=== PATIENT | female | born 1970 | race Caucasian/White ===

== ENCOUNTER 2025-06-04 17:42 | Inpatient (IN) ==
--- NOTE | 2025-06-04 18:13 | Emergency Department Note ---
Impression & Plan T12 burst fracture, Fall, Back pain, Acute hyperglycemia ED Provider Note NAME: MISHEL CARDOSO AGE: 55 SEX: F : 1970 ARRIVES VIA: Walk-In INFORMANT: Patient ED PROVIDER(S): Reyes Scott DO CHIEF COMPLAINT: back pain HPI: Patient is a 55-year-old female who presents to the ER for back pain. She notes that she got pushed over by a dog while at work on March 30. Since that she has been having worsening back pain. She has had imaging performed earlier and per family report states there is no fracture. Family notes that she had an MRI done the other day which was read by Dr. Juarez and she was referred to the ER for severe pain and worsening imaging. ADDITIONAL HISTORY OBTAINED: Additional history obtained from family who notes that she had the MRI performed at 611 Chronic Medical/Social Conditions Affecting Care: Per HPI PAST MEDICAL HISTORY:See Below PAST SURGICAL HISTORY:See Below FAMILY HISTORY:See Below SOCIAL HISTORY:See Below HOME MEDICATIONS:See Below ALLERGIES:See Below VITALS:See Below PHYSICAL EXAMINATION: GENERAL: Sitting up in chair, alert, disheveled, moderate distress holding her lower back EYE EXAM: normal conjunctiva. PERRL and EOM's grossly intact. OROPHARYNX: mucous membranes are moist LUNGS: Clear to auscultation. Normal chest wall mechanics HEART: no murmurs, S1 normal and S2 normal ABDOMEN: abdomen soft, non-tender, normo-active bowel sounds, no masses, no rebound or guarding. BACK: Back is symmetrical on inspection and there is no deformity, midline lower lumbar tenderness tracking up through upper lumbar, no CVA tenderness. SKIN: no rashes and no bruising UPPER EXTREMITIES: upper extremities are grossly normal. LOWER EXTREMITIES: Flexion-extension bilateral hips knees ankles is intact. Able to stand on her feet. Significant pain with movement. NEURO EXAM: Normal sensorium, cranial nerves II-XII grossly intact, normal speech, no gross weakness of arms, no gross weakness of legs. MEDICAL DECISION MAKING: Patient is a 55-year-old female who presents ER for the above-stated complaint. I discussed case with Dr. Huy Chacon who notes that patient has a T12 burst fracture which is felt to be pathologic. He requested MRI with and without contrast and commendation with admission and they will see in the morning and decide a plan for surgery. Patient was called upon arrival without the results of the blood work after discussion with orthospine. Labs showed mild leukocytosis 11,000. Hemoglobin is 17. CMP resulted and showed an elevated glucose of 300 with a gap. At this time the patient had already been admitted. Will defer to the hospitalist. Patient was given IV morphine and Toradol and fluids while in the ER. Consults/Care Managements Discussions: Per MDM Triage Nursing notes reviewed. Limited review of prior medical records performed Vital Signs: reviewed and remarkable for tachy Differential diagnosis: Musculoskeletal, disc herniation, fracture, metastatic disease, cord compression, discitis, sciatica, cauda equina, infection, aortic disease, renal colic, gastrointestinal, as well as other pathologies. ER treatment provided: See below Diagnostics interpreted by me include EKG and cardiac monitoring as listed below: -Cardiac Monitoring: An order was placed for continuous cardiac monitoring. The monitor shows a rate of 101 with sinus rhythm. -ECG: none -Laboratory studies:Interpreted by me as stated above in MDM and shown below. Imaging studies: Xrays: As interpreted by me:none CTs show: none Procedures:none Critical Care: None Past Med/Surg History Problem List (Updated 06/04/25 @ 23:46 by Reyes Scott DO) Acute hyperglycemia (Acute) Back pain (Acute) Fall (Acute) T12 burst fracture (Acute) Social History Smoking Status: Current every day smoker Tobacco Type: Cigarettes Hx Alcohol Use: No Hx Substance Use: No Preferred Language: Panamanian Feels Safe at Home: Yes Allergies Allergies Allergy/AdvReac Type Severity Reaction Status Date / Time No Known Allergies Allergy Verified 06/04/25 18:50 Home Meds Home Medications Medication Instructions Recorded Confirmed ibuprofen 200 mg tablet 600 - 800 mg PO Q6H PRN Pain 06/04/25 06/04/25 Results & Data (ED) Vital Signs Vital Signs - 24 hr 06/04/25 17:52 06/04/25 18:31 06/04/25 18:32 Temperature 36.6 C Temperature Source Temporal Artery Scan Pulse Rate 116 H 93 H Pulse Rate [Finger] Respiratory Rate 20 Respiratory Effort / Characteristics Non-Labored Spontaneous Respiratory Depth Normal Respiratory Pattern Regular Blood Pressure 113/74 Blood Pressure [Left Arm] Blood Pressure Mean 87 Blood Pressure Mean [Left Arm] Blood Pressure Position Sitting Pulse Oximetry 98 99 Oxygen Delivery Method Room Air Room Air Sepsis Recent Fever Within 48 Hours No Sepsis New/Unexplained Change in Mental Status N/A Sepsis Action Taken by Nursing No Action Required 06/04/25 18:47 Temperature Temperature Source Pulse Rate Pulse Rate [Finger] 87 Respiratory Rate 20 Respiratory Effort / Characteristics Respiratory Depth Respiratory Pattern Blood Pressure Blood Pressure [Left Arm] 114/62 Blood Pressure Mean Blood Pressure Mean [Left Arm] 79 Blood Pressure Position Pulse Oximetry 99 Oxygen Delivery Method Room Air Sepsis Recent Fever Within 48 Hours Sepsis New/Unexplained Change in Mental Status Sepsis Action Taken by Nursing Laboratory Data 06/04/25 18:32 06/04/25 18:32 Lab Results 06/04/25 Range/Units 18:32 WBC 11.89 H (4.8-10.8) K/ul RBC 5.57 H (4.20-5.40) M/uL Hgb 17.1 H (12.0-16.0) g/dl Hct 48.8 H (37.0-47.0) % MCV 87.6 (80.0-100.0) fL MCH 30.7 (25.0-34.0) pg MCHC 35.0 (32.0-36.0) g/dL RDW Std Deviation 38.6 (36.4-46.3) fL RDW Coeff of Tad 12.0 (11.5-14.5) % Plt Count 375 (130-400) K/uL MPV 10.1 (9.4-12.4) fL Immature Gran % (Auto) 2.9 % Neut % (Auto) 68.6 % Lymph % (Auto) 20.2 % [place] % (Auto) 5.3 % Eos % (Auto) 1.9 % Baso % (Auto) 1.1 % Neut # (Auto) 8.15 H (1.40-6.50) K/uL Lymph # (Auto) 2.40 (1.20-3.40) K/uL [place] # (Auto) 0.63 H (0.11-0.59) K/uL Eos # (Auto) 0.23 (0.00-0.50) K/uL Baso # (Auto) 0.13 (0.00-0.20) K/uL Immature Gran # (Auto) 0.35 H (0.01-0.20) K/uL Sodium 130 L (136-145) mmol/L Potassium 4.3 (3.5-5.1) mmol/L Chloride 96 L (98-107) mmol/L Carbon Dioxide 16 L (21-32) mmol/L Anion Gap 18 H (3-11) BUN 15 (6-23) mg/dl Creatinine 0.70 (0.6-1.2) mg/dl Est Cr Clr Drug Dosing 77.0 ml/min eGFR 102.07 BUN/Creatinine Ratio 21.4 H (10-20) Glucose 466 H* (70-99(Fasting)) mg/dl Calcium 9.0 (8.6-10.3) mg/dl Total Bilirubin 0.4 (0.2-1.0) mg/dl AST 9 L (13-39) U/L ALT 6 L (7-52) U/L Alkaline Phosphatase 113 H (34-104) U/L Total Protein 6.9 (6.0-8.3) gm/dl Albumin 3.1 L (3.4-5.0) gm/dl Globulin 3.8 (2.5-4.0) gm/dl Albumin/Globulin Ratio 0.8 L (0.9-2) Lipase 10 L (11-82) U/L Administered Medications Insulin Human Regular 250 (units/ Sodium Chloride) 250 mls @ 5.3 mls/hr IV .Q24H SHEILA; Protocol Stop: 07/04/25 20:59 Last Titration: 06/04/25 23:04 Dose: 5.3 units/hr, 5.3 mls/hr Documented By: LIBERTAD Co-signed By: CARIE Admin: 06/04/25 22:06 Dose: 5.3 units/hr, 5.3 mls/hr Documented By: LIBERTAD Co-signed By: SHANON Potassium Chloride/Sodium Chloride (1/2 Nss + 20meq Kcl 1000ml) 20 meq in 1,000 mls @ 125 mls/hr IV .Q8H SHEILA Stop: 06/07/25 21:14 Last Admin: 06/04/25 22:07 Dose: 125 mls/hr Documented By: LIBERTAD Daptomycin 400 mg/ Syringe 8 mls @ 4 mls/min IV Q24H SHEILA; Protocol Stop: 06/11/25 21:59 Last Admin: 06/04/25 22:50 Dose: 4 mls/min Documented By: LIBERTAD Insulin Aspart (Insulin Aspart Per Unit Charge) 0 units SC ACHS SHEILA Stop: 07/04/25 20:59 Last Admin: 06/04/25 23:09 Dose: Not Given Documented By: LIBERTAD Co-signed By: CARIE Discontinued Medications Sodium Chloride (Nss) 1,000 mls @ 999 mls/hr IV .Q1H1M ONE Stop: 06/04/25 19:13 Last Infusion: 06/04/25 20:03 Dose: Infused Documented By: Admin: 06/04/25 18:28 Dose: 999 mls/hr Documented By: JO Sodium Chloride (Nss) 1,000 mls @ 999 mls/hr IV .Q1H1M ONE Stop: 06/04/25 22:19 Last Admin: 06/04/25 21:57 Dose: 999 mls/hr Documented By: LIBERTAD Piperacillin Sod/Tazobactam Sod (Zosyn) 4.5 gm in 100 mls @ 200 mls/hr IV ONE ONE; Protocol Stop: 06/04/25 22:14 Last Admin: 06/04/25 22:53 Dose: 200 mls/hr Documented By: LIBERTAD Ketorolac Tromethamine (Ketorolac Tromethamine 15 Mg/Ml Vial) 15 mg IV NOW ONE Stop: 06/04/25 18:14 Last Admin: 06/04/25 18:28 Dose: 15 mg Documented By: JO Miscellaneous (Dka Goal Range 150-250 Mg/Dl) 1 each N/A ONE ONE Stop: 06/04/25 20:50 Last Admin: 06/04/25 23:05 Dose: 1 each Documented By: LIBERTAD Morphine Sulfate (Morphine Sulfate 4 Mg/Ml 1 Ml Carp\Vial) 4 mg IV NOW STA Stop: 06/04/25 18:36 Last Admin: 06/04/25 18:43 Dose: 4 mg Documented By: WARREN Ondansetron HCl (Ondansetron Inj 2 Mg/Ml 2 Ml Vial) 4 mg IV NOW STA Stop: 06/04/25 18:36 Last Admin: 06/04/25 18:43 Dose: 4 mg Documented By: WARREN Discharge Plan Visit Data Chief Complaint: Back Injury/Pain Stated Complaint: BACK BROKEN, VOMITING ED Provider: Reyes Scott Discharge Problem: T12 burst fracture, Fall, Back pain, Acute hyperglycemia Patient Disposition: Admitted As Inpatient Condition: Fair Discharge Instructions Interventions: ED Discharge Assessment Last Done: 06/04/25 20:38 Discharge Problem: Fall Qualifiers: Encounter type: initial encounter Qualified Code(s): W19.XXXA - Unspecified fall, initial encounter Back pain Qualifiers: Back pain location: low back pain Chronicity: unspecified Back pain laterality: unspecified Sciatica presence: unspecified whether sciatica present Qualified Code(s): M54.50 - Low back pain, unspecified
[2025-06-04] MEDS: KETOROLAC TROMETHAMINE 15 MG/ML VIAL IV ONE (18:28)
[2025-06-04] MEDS: SODIUM CHLORIDE 0.9% 1,000 ML IV ONE ×2 (18:28→21:57)
[2025-06-04] MEDS: MoRPHine SULFATE 4 MG/ML 1 ML CARP\\VIAL IV STA (18:43)
[2025-06-04] MEDS: ONDANSETRON INJ 2 MG/ML 2 ML VIAL IV STA (18:43)
[2025-06-04 18:54] LABS: Hematocrit (blood only) 48.8 % (37.0-47.0); Hemoglobin 17.1 g/dl (12.0-16.0); Immature Granulocytes # (auto) 0.35 K/uL (0.01-0.20); Immature Granulocytes % (auto) 2.9 %; Mean Corpuscular Hemoglobin 30.7 pg (25.0-34.0); Mean Corpuscular Volume 87.6 fL (80.0-100.0); Platelet Count 375 K/uL (130-400); RDW Standard Deviation 38.6 fL (36.4-46.3); Red Blood Count 5.57 M/uL (4.20-5.40); White Blood Count 11.89 K/ul (4.8-10.8)
[2025-06-04] MEDS ORDERED: MoRPHine SULFATE 2 MG/ML CARP IV PRN (18:54)
--- NOTE | 2025-06-04 19:31 | History & Physical Report ---
Date of Service June 04, 2025 Assessment & Plan (1) T12 burst fracture: (2) Fall: Plan Assessment and plan: S/p fall T12 burst fracture: Noted on MRI, repeat MRI with contrast, add lumbar spine MRI with concerns for incontinence Pain control with morphine, bedrest, Ortho consulted, n.p.o. after midnight for possible surgical intervention -Insert Espinoza catheter; for further help with pain management Recent dog attack -March 2025 Up-to-date on rabies shots A total of 60 minutes was spent on chart review/reviewing diagnostic data/discussion with consultants/facilitating plan of care Full code DVT prophylaxis: SCDs History of Present Illness Chief Complaint: Back pain Primary Care Provider: NO PCP The patient is a 55-year-old female with no significant past medical history who presents to the ED on 06/04/2025 with complaints of ongoing back pain since March 2025. The patient reports being attacked by a pit bull on March 30, 2025 while she was working. The PIP or jumped on her and knocked her down. He also pinned her up against a wall. She reports her back pain has continued to worsen. She was following with orthopedics outpatient and had an MRI without contrast of her thoracic spine that resulted today 06/04/2025 showing a T12 burst fracture with concern for a pathological fracture. She was sent in by Dr. Juarez for further imaging. On exam, patient has no neurological deficits. She reports pain with movement. She also reports issues with ongoing incontinence due to the fact that she cannot get to the bathroom quick enough secondary to the pain. She denies saddle anesthesia. She denies any chest pain/shortness of breath. She reports taking ibuprofen at home for the pain with no improvement. Was given morphine in the ED with improvement. She does report thoracic/lumbar spinal tenderness when examined. Currently smokes a half a pack of cigarettes a day Denies any alcohol use On arrival to the ED, labs are fairly unremarkable, CMP still pending at this time. The patient will be admitted for further management of T12 compression fracture Allergies Allergy/AdvReac Type Severity Reaction Status Date / Time No Known Allergies Allergy Verified 06/04/25 18:50 Home Medications Medication Instructions Recorded Confirmed Type ibuprofen 200 mg tablet 600 - 800 mg PO Q6H PRN Pain 06/04/25 06/04/25 History Past Med/Surg History Problem List (Updated 06/04/25 @ 19:27 by DALE Duggan) Fall T12 burst fracture Social History Smoking Status: Current every day smoker Tobacco Type: Cigarettes Preferred Language: Namibian Feels Safe at Home: Yes Review of Systems Review of Systems: All systems reviewed & are unremarkable except as noted in HPI & below Physical Exam Constitutional: WD/WN, vitals as above Eyes: PERRL, conjunctivae normal, anicteric sclerae ENMT: external ear and nose normal, oropharynx normal Neck: trachea midline, no thyromegaly Respiratory: normal respiratory effort, lungs clear to auscultation Cardiovascular: RRR, no murmur, no edema Gastrointestinal (Abdomen): normal bowel sounds, soft, nontender, no hepatosplenomegaly Musculoskeletal: no cyanosis or clubbing, extremities motor strength 5/5 (Left foot s/p toe amputation, no neurodeficits, 5/5 strength bilateral legs) Skin: no rashes, warm and dry Neurologic: PERRL, EOMI, accommodation nl, no face palsy, no dysarthria Lymphatic: no cervical or axillary lymphadenopathy Results & Data Results & Data Vital Signs (Past 12 Hours) Vital Signs Temp Pulse Pulse Resp BP BP Pulse Ox 06/04/25 18:47 87 20 114/62 99 06/04/25 18:32 93 H 06/04/25 18:31 99 06/04/25 17:52 36.6 C 116 H 20 113/74 98 O2 Del Method 06/04/25 18:47 Room Air 06/04/25 18:32 06/04/25 18:31 Room Air 06/04/25 17:52 Room Air Diagnostic Findings Laboratory Results WBC 11.89 K/ul (4.8-10.8) H 06/04/25 18:32 RBC 5.57 M/uL (4.20-5.40) H 06/04/25 18:32 Hgb 17.1 g/dl (12.0-16.0) H 06/04/25 18:32 Hct 48.8 % (37.0-47.0) H 06/04/25 18:32 MCV 87.6 fL (80.0-100.0) 06/04/25 18:32 MCH 30.7 pg (25.0-34.0) 06/04/25 18:32 MCHC 35.0 g/dL (32.0-36.0) 06/04/25 18:32 RDW Std Deviation 38.6 fL (36.4-46.3) 06/04/25 18:32 RDW Coeff of Tad 12.0 % (11.5-14.5) 06/04/25 18:32 Plt Count 375 K/uL (130-400) 06/04/25 18:32 MPV 10.1 fL (9.4-12.4) 06/04/25 18:32 Immature Gran % (Auto) 2.9 % 06/04/25 18:32 Neut % (Auto) 68.6 % 06/04/25 18:32 Lymph % (Auto) 20.2 % 06/04/25 18:32 [place] % (Auto) 5.3 % 06/04/25 18:32 Eos % (Auto) 1.9 % 06/04/25 18:32 Baso % (Auto) 1.1 % 06/04/25 18:32 Neut # (Auto) 8.15 K/uL (1.40-6.50) H 06/04/25 18:32 Lymph # (Auto) 2.40 K/uL (1.20-3.40) 06/04/25 18:32 [place] # (Auto) 0.63 K/uL (0.11-0.59) H 06/04/25 18:32 Eos # (Auto) 0.23 K/uL (0.00-0.50) 06/04/25 18:32 Baso # (Auto) 0.13 K/uL (0.00-0.20) 06/04/25 18:32 Immature Gran # (Auto) 0.35 K/uL (0.01-0.20) H 06/04/25 18:32 Supervising Physician Co-Signing Physician Notes Attending Addendum: Case reviewed with the advanced practitioner. I have personally performed a history and physical examination on the patient. I have reviewed the advanced practitioner's documentation on the date of service referenced in note, and I agree with, and take responsibility for the plan of care. please refer to her notes for full details patient seen and examined, records reviewed by myself as well on exam, patient seen resting in bed, friend at bedside reports mid-low back pain, 6/10 denies leg weakness, numbness, incontinence reports she has a boil on her lower abdomen no other symptoms VS noted and reviewed oriented X3, not in distress, speaks in sentences with no effort nor accessory muscle use normal rate, regular rhythm, no murmurs clear breath sounds bilaterally non distended, soft, nontender suprapubic area- (examined with SHAREPOINT TRAINER at bedside throughout whole encounter) (+) erythematous fluctuant mass with yellow drainage, eschar no bipedal edema, erythema, warmth no neuro deficits all labs, imaging noted and reviewed ASSESSMENT AND PLAN> T11-T12 BURST, COMPRESSION FRACTURE discussed with Dr. 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 Kalin Page MD
[2025-06-04 20:14] LABS: Alanine Aminotransferase 6.0 U/L (7-52); Albumin Globulin Ratio 0.8 (0.9-2); Alkaline Phosphatase 113.0 U/L (34-104); Anion Gap 18.0 (3-11); Bilirubin,Total 0.4 mg/dl (0.2-1.0); Blood Urea Nitrogen 15.0 mg/dl (6-23); Calcium 9.0 mg/dl (8.6-10.3); Carbon Dioxide 16.0 mmol/L (21-32); Chloride 96.0 mmol/L (98-107); Creatinine Clr Calc Pharmacy 77.0 ml/min; Globulin 3.8 gm/dl (2.5-4.0); Glucose 466.0 mg/dl (70-99(Fasting)); Lipase 10.0 U/L (11-82); Potassium 4.3 mmol/L (3.5-5.1); Sodium 130.0 mmol/L (136-145); Total Protein 6.9 gm/dl (6.0-8.3)
[2025-06-04] MEDS ORDERED: PHARMACY GLYCEMIC MGMT CONSULT PRN (20:49)
[2025-06-04] MEDS ORDERED: STAT IV Infusion **Titration per Protocol STA (20:49)
[2025-06-04] MEDS ORDERED: PLASMA-LYTE A 1,000 ML IV SCH (21:00)
[2025-06-04] MEDS ORDERED: PENDING 1/2NSS+20mEq KCL IVF SCH (21:00)
[2025-06-04] MEDS ORDERED: DEXTROSE 50% 50 ML SYRINGE IV PRN (21:15)
[2025-06-04] MEDS ORDERED: GLUCOSE 40% GEL 15 GM TUBE PO PRN (21:15)
[2025-06-04] MEDS ORDERED: CARBOHYDRATES FOR HYPOGLYCEMIA PO PRN (21:15)
[2025-06-04] MEDS ORDERED: GLUCAGON FOR INJ 1 MG VIAL SQ PRN (21:15)
[2025-06-04] MEDS ORDERED: NovoLIN-R BOLUS FROM BAG IV ONE (21:15)
[2025-06-04] MEDS ORDERED: GLUCOSE 10 TAB/TUBE PO PRN (21:15)
[2025-06-04] MEDS: INSULIN REGULAR 250 UNITS in SODIUM CHLORIDE 0.9% 247.5 ML IV SCH (22:06)
[2025-06-04] MEDS: SODIUM CHLOR 0.45% + 20MEQ KCL 20 MEQ/1,000 ML BAG IV SCH (22:07)
[2025-06-04 22:29] LABS: Base Excess VBG -9.3 mEq/L; HCO3 VBG 18 mmol/L; Oxygen Saturation VBG < 60.0 %; PCO2 VBG 41 mmHg (38-50); PO2 VBG 27 mmHg; pH VBG 7.24 (7.36-7.41)
[2025-06-04] MEDS: DAPTOmycin 400 MG in SYRINGE 0 ML IV SCH (22:50)
[2025-06-04] MEDS: PIPERACILLIN/TAZOBACTAM 4.5 GM/100 ML BAG IV ONE (22:53)
[2025-06-04] MEDS: DKA GOAL RANGE 150-250 mg/dl ONE (23:05)
[2025-06-04] MEDS: INSULIN ASPART PER UNIT CHARGE SC SCH (23:09)
[2025-06-04 23:14] LABS: Magnesium 1.6 mg/dl (1.7-2.4)
[2025-06-04] MEDS: LORazepam 0.5 MG TAB PO STA (23:46)
[2025-06-04 23:48] LABS: Anion Gap 20.0 (3-11); Calcium 8.4 mg/dl (8.6-10.3); Carbon Dioxide 13.0 mmol/L (21-32); Chloride 98.0 mmol/L (98-107); Potassium 3.8 mmol/L (3.5-5.1); Sodium 131.0 mmol/L (136-145)
[2025-06-05 00:10] LABS: Blood Urea Nitrogen 15.0 mg/dl (6-23); Creatinine Clr Calc Pharmacy 94.7 ml/min; Glucose 396.0 mg/dl (70-99(Fasting))
[2025-06-05 01:50] LABS: Anion Gap 11.0 (3-11); Blood Urea Nitrogen 18.0 mg/dl (6-23); Calcium 7.7 mg/dl (8.6-10.3); Carbon Dioxide 21.0 mmol/L (21-32); Chloride 102.0 mmol/L (98-107); Creatinine Clr Calc Pharmacy 74.5 ml/min; Glucose 321.0 mg/dl (70-99(Fasting)); Magnesium 1.4 mg/dl (1.7-2.4); Potassium 3.1 mmol/L (3.5-5.1); Sodium 134.0 mmol/L (136-145)
[2025-06-05] MEDS: PENDING D5 1/2NS+20mEq KCL IVF SCH (02:15)
[2025-06-05] MEDS: D5W AND 1/2NSS + 20MEQ KCL 20 MEQ/1,000 ML BAG IV SCH (03:01)
[2025-06-05] MEDS: PIPERACILLIN/TAZOBACTAM 4.5 GM/100 ML BAG IV SCH (03:02)
[2025-06-05] MEDS: POTASSIUM CHLORIDE CRTAB 20 MEQ TABCR PO STA ×2 (05:54→07:59)
[2025-06-05] MEDS: MAGNESIUM SULFATE / D5W 1 GM/100 ML BAG IV SCH (05:54)
[2025-06-05 05:57] LABS: Hematocrit (blood only) 44.5 % (37.0-47.0); Hemoglobin 15.6 g/dl (12.0-16.0); Immature Granulocytes # (auto) 0.27 K/uL (0.01-0.20); Immature Granulocytes % (auto) 1.7 %; Mean Corpuscular Hemoglobin 30.5 pg (25.0-34.0); Mean Corpuscular Volume 86.9 fL (80.0-100.0); Platelet Count 345 K/uL (130-400); RDW Standard Deviation 37.7 fL (36.4-46.3); Red Blood Count 5.12 M/uL (4.20-5.40); White Blood Count 15.70 K/ul (4.8-10.8)
[2025-06-05 06:18] LABS: Alanine Aminotransferase 5.0 U/L (7-52); Albumin Globulin Ratio 0.9 (0.9-2); Alkaline Phosphatase 81.0 U/L (34-104); Anion Gap 8.0 (3-11); Bilirubin,Total 0.2 mg/dl (0.2-1.0); Blood Urea Nitrogen 19.0 mg/dl (6-23); Calcium 7.5 mg/dl (8.6-10.3); Carbon Dioxide 20.0 mmol/L (21-32); Chloride 105.0 mmol/L (98-107); Creatinine Clr Calc Pharmacy 86.0 ml/min; Globulin 2.7 gm/dl (2.5-4.0); Glucose 268.0 mg/dl (70-99(Fasting)); Magnesium 1.3 mg/dl (1.7-2.4); Potassium 3.0 mmol/L (3.5-5.1); Sodium 133.0 mmol/L (136-145); Total Protein 5.1 gm/dl (6.0-8.3)
[2025-06-05] MEDS: SODIUM CHLORIDE 0.9% 1,000 ML IV SCH (08:08)
[2025-06-05] MEDS: LANTUS PER UNIT CHARGE SC STA ×2 (08:23→09:37)
[2025-06-05] MEDS: INSULIN ASPART PER UNIT CHARGE SC SCH (08:23)
--- NOTE | 2025-06-05 09:48 | Surgery Consultation ---
Date of Consultation June 05, 2025 Assessment & Plan (1) Suprapubic abscess: 55 yo female with uncontrolled diabetes no on any current treatment who presented to ED due to Chronic back pain s/p pitbull attack and fall who was found to be in DKA with blood glucose oin 400's and hemoglobin a1c of >16.9. History of skin infections. Suprapubic phelgmon, cellulitis, with skin necrosis. Will need debridement due to skin necrosis and subcutaneous infection. Discussed with patient that she would be at risk for needing wound vac due to her poorly controlled diabetes . CT scan to evaluation for any deeper subcutaneous tracking. NPO for now. Continue medical management CT scan reviewed with Dr. mills, plan for OR tomorrow 9 am for debridement of wound. Okay for diet today and NPO after midnight. Dr. Mills has seen and examined patient. History of Present Illness Reason for Consultation: Suprapubic abscess, skin necrosis Requesting Physician: MD Camilo Attending Physician: Shine Lion DO History of Present Illness Cat is a 55 yo female who has had chronic back pain and issues with mobility since dog attack early March. She presented to ED with chronic back pain. She was found to have elevated blood glucose in 400s with DKA and started on Heparin. Found to have suprapubic abscess and skin necrosis in which our services were consulted. History of prior skin infections. Diabetic but has not been on Insulin for at least 3 years due to no insurance and unable to cover costs. States area of suprapubic region became inflamed about 3 days ago, Skin was black which she states she just pulled off. No vaginal pain. Blood glucose in 200's today, hemoglobin a 1 c >16.9 Allergies Allergy/AdvReac Type Severity Reaction Status Date / Time latex Allergy Itching Verified 06/05/25 10:37 Home Medications Medication Instructions Recorded Confirmed Type ibuprofen 200 mg tablet 600 - 800 mg PO Q6H PRN Pain 06/04/25 06/04/25 History Patient History Social History Smoking Status: Current every day smoker Tobacco Type: Cigarettes Hx Alcohol Use: No Hx Substance Use: No Preferred Language: Armenian Feels Safe at Home: Yes Review of Systems Review of Systems: All systems reviewed & are unremarkable except as noted in HPI & below Physical Exam Constitutional: WD/WN, vitals as above cooperative; no acute distress and not ill appearing Respiratory: normal respiratory effort; no respiratory distress Gastrointestinal (Abdomen): Inspection/Auscultation: abdomen not distended Supraprubic region: there is about 7 cm area of fluctuance and induration with central necrotic skin, tender to palpation, no subcutaneous crepitus noted Skin: no rashes, warm and dry Results & Data Vital Signs (Past 12 Hours) Vital Signs Temp Pulse Pulse Resp BP BP Pulse Ox 06/05/25 07:44 36.7 C 88 20 115/70 95 06/05/25 05:36 92 H 06/05/25 02:31 36.8 C 99 H 14 113/74 100 06/04/25 23:30 109 H 06/04/25 23:25 36.7 C 104 H 20 94/61 L 99 06/04/25 22:17 104 H 20 102/59 L O2 Del Method 06/05/25 07:44 Room Air 06/05/25 05:36 06/05/25 02:31 Room Air 06/04/25 23:30 06/04/25 23:25 Room Air 06/04/25 22:17 Laboratory Results 06/05/25 06/05/25 06/05/25 Range/Units 07:19 05:53 05:39 WBC 15.70 H (4.8-10.8) K/ul RBC 5.12 (4.20-5.40) M/uL Hgb 15.6 (12.0-16.0) g/dl Hct 44.5 (37.0-47.0) % MCV 86.9 (80.0-100.0) fL MCH 30.5 (25.0-34.0) pg MCHC 35.1 (32.0-36.0) g/dL RDW Std Deviation 37.7 (36.4-46.3) fL RDW Coeff of Tad 11.9 (11.5-14.5) % Plt Count 345 (130-400) K/uL MPV 9.7 (9.4-12.4) fL Immature Gran % (Auto) 1.7 % Neut % (Auto) 76.7 % Lymph % (Auto) 13.8 % Travis % (Auto) 6.1 % Eos % (Auto) 1.0 % Baso % (Auto) 0.7 % Neut # (Auto) 12.04 H (1.40-6.50) K/uL Lymph # (Auto) 2.17 (1.20-3.40) K/uL Travis # (Auto) 0.95 H (0.11-0.59) K/uL Eos # (Auto) 0.16 (0.00-0.50) K/uL Baso # (Auto) 0.11 (0.00-0.20) K/uL Immature Gran # (Auto) 0.27 H (0.01-0.20) K/uL VBG pH 7.30 L (7.36-7.41) VBG pCO2 (38-50) mmHg VBG pO2 mmHg VBG HCO3 mmol/L VBG O2 Saturation % VBG Base Excess mEq/L Sodium 133 L (136-145) mmol/L Potassium 3.0 L (3.5-5.1) mmol/L Chloride 105 (98-107) mmol/L Carbon Dioxide 20 L (21-32) mmol/L Anion Gap 8 (3-11) BUN 19 (6-23) mg/dl Creatinine 0.65 (0.6-1.2) mg/dl Est Cr Clr Drug Dosing 86.0 ml/min eGFR 103.91 BUN/Creatinine Ratio 29.2 H (10-20) Glucose 268 H (70-99(Fasting)) mg/dl POC Glucose 235 H 209 H (70-99) mg/dl Estimat Average Glucose > 438 mg/dl Hemoglobin A1c > 16.9 H (4.5-5.6) % Lactate (0.4-2.0) mmol/L Calcium 7.5 L (8.6-10.3) mg/dl Phosphorus 2.6 Magnesium 1.3 L Total Bilirubin 0.2 (0.2-1.0) mg/dl AST 5 L (13-39) U/L ALT 5 L (7-52) U/L Alkaline Phosphatase 81 (34-104) U/L Total Protein 5.1 L D (6.0-8.3) gm/dl Albumin 2.4 L (3.4-5.0) gm/dl Globulin 2.7 (2.5-4.0) gm/dl Albumin/Globulin Ratio 0.9 (0.9-2) Lipase (11-82) U/L 07/09/25 07/09/25 07/09/25 Range/Units 05:03 04:04 03:09 WBC (4.8-10.8) K/ul RBC (4.20-5.40) M/uL Hgb (12.0-16.0) g/dl Hct (37.0-47.0) % MCV (80.0-100.0) fL MCH (25.0-34.0) pg MCHC (32.0-36.0) g/dL RDW Std Deviation (36.4-46.3) fL RDW Coeff of Tad (11.5-14.5) % Plt Count (130-400) K/uL MPV (9.4-12.4) fL Immature Gran % (Auto) % Neut % (Auto) % Lymph % (Auto) % Travis % (Auto) % Eos % (Auto) % Baso % (Auto) % Neut # (Auto) (1.40-6.50) K/uL Lymph # (Auto) (1.20-3.40) K/uL Travis # (Auto) (0.11-0.59) K/uL Eos # (Auto) (0.00-0.50) K/uL Baso # (Auto) (0.00-0.20) K/uL Immature Gran # (Auto) (0.01-0.20) K/uL VBG pH (7.36-7.41) VBG pCO2 (38-50) mmHg VBG pO2 mmHg VBG HCO3 mmol/L VBG O2 Saturation % VBG Base Excess mEq/L Sodium (136-145) mmol/L Potassium (3.5-5.1) mmol/L Chloride (98-107) mmol/L Carbon Dioxide (21-32) mmol/L Anion Gap (3-11) BUN (6-23) mg/dl Creatinine (0.6-1.2) mg/dl Est Cr Clr Drug Dosing ml/min eGFR BUN/Creatinine Ratio (10-20) Glucose (70-99(Fasting)) mg/dl POC Glucose 232 H 193 H 183 H (70-99) mg/dl Estimat Average Glucose mg/dl Hemoglobin A1c (4.5-5.6) % Lactate (0.4-2.0) mmol/L Calcium (8.6-10.3) mg/dl Phosphorus Magnesium Total Bilirubin (0.2-1.0) mg/dl AST (13-39) U/L ALT (7-52) U/L Alkaline Phosphatase (34-104) U/L Total Protein (6.0-8.3) gm/dl Albumin (3.4-5.0) gm/dl Globulin (2.5-4.0) gm/dl Albumin/Globulin Ratio (0.9-2) Lipase (11-82) U/L 06/05/25 06/05/25 06/05/25 Range/Units 02:05 01:12 00:57 WBC (4.8-10.8) K/ul RBC (4.20-5.40) M/uL Hgb (12.0-16.0) g/dl Hct (37.0-47.0) % MCV (80.0-100.0) fL MCH (25.0-34.0) pg MCHC (32.0-36.0) g/dL RDW Std Deviation (36.4-46.3) fL RDW Coeff of Tad (11.5-14.5) % Plt Count (130-400) K/uL MPV (9.4-12.4) fL Immature Gran % (Auto) % Neut % (Auto) % Lymph % (Auto) % Travis % (Auto) % Eos % (Auto) % Baso % (Auto) % Neut # (Auto) (1.40-6.50) K/uL Lymph # (Auto) (1.20-3.40) K/uL Travis # (Auto) (0.11-0.59) K/uL Eos # (Auto) (0.00-0.50) K/uL Baso # (Auto) (0.00-0.20) K/uL Immature Gran # (Auto) (0.01-0.20) K/uL VBG pH 7.27 L (7.36-7.41) VBG pCO2 (38-50) mmHg VBG pO2 mmHg VBG HCO3 mmol/L VBG O2 Saturation % VBG Base Excess mEq/L Sodium 134 L (136-145) mmol/L Potassium 3.1 L (3.5-5.1) mmol/L Chloride 102 (98-107) mmol/L Carbon Dioxide 21 (21-32) mmol/L Anion Gap 11 (3-11) BUN 18 (6-23) mg/dl Creatinine 0.75 (0.6-1.2) mg/dl Est Cr Clr Drug Dosing 74.5 ml/min eGFR 93.96 BUN/Creatinine Ratio 24.0 H (10-20) Glucose 321 H* (70-99(Fasting)) mg/dl POC Glucose 243 H 296 H (70-99) mg/dl Estimat Average Glucose mg/dl Hemoglobin A1c (4.5-5.6) % Lactate (0.4-2.0) mmol/L Calcium 7.7 L (8.6-10.3) mg/dl Phosphorus 3.0 Magnesium 1.4 L Total Bilirubin (0.2-1.0) mg/dl AST (13-39) U/L ALT (7-52) U/L Alkaline Phosphatase (34-104) U/L Total Protein (6.0-8.3) gm/dl Albumin (3.4-5.0) gm/dl Globulin (2.5-4.0) gm/dl Albumin/Globulin Ratio (0.9-2) Lipase (11-82) U/L 06/04/25 06/04/25 06/04/25 Range/Units 23:59 23:01 22:00 WBC (4.8-10.8) K/ul RBC (4.20-5.40) M/uL Hgb (12.0-16.0) g/dl Hct (37.0-47.0) % MCV (80.0-100.0) fL MCH (25.0-34.0) pg MCHC (32.0-36.0) g/dL RDW Std Deviation (36.4-46.3) fL RDW Coeff of Tad (11.5-14.5) % Plt Count (130-400) K/uL MPV (9.4-12.4) fL Immature Gran % (Auto) % Neut % (Auto) % Lymph % (Auto) % Travis % (Auto) % Eos % (Auto) % Baso % (Auto) % Neut # (Auto) (1.40-6.50) K/uL Lymph # (Auto) (1.20-3.40) K/uL Travis # (Auto) (0.11-0.59) K/uL Eos # (Auto) (0.00-0.50) K/uL Baso # (Auto) (0.00-0.20) K/uL Immature Gran # (Auto) (0.01-0.20) K/uL VBG pH Cancelled (7.36-7.41) VBG pCO2 (38-50) mmHg VBG pO2 mmHg VBG HCO3 mmol/L VBG O2 Saturation % VBG Base Excess mEq/L Sodium 131 L (136-145) mmol/L Potassium 3.8 (3.5-5.1) mmol/L Chloride 98 (98-107) mmol/L Carbon Dioxide 13 L (21-32) mmol/L Anion Gap 20 H (3-11) BUN 15 (6-23) mg/dl Creatinine 0.59 L (0.6-1.2) mg/dl Est Cr Clr Drug Dosing 94.7 ml/min eGFR 106.37 BUN/Creatinine Ratio 25.4 H (10-20) Glucose 396 H* (70-99(Fasting)) mg/dl POC Glucose 344 H* 332 H* 366 H* (70-99) mg/dl Estimat Average Glucose mg/dl Hemoglobin A1c (4.5-5.6) % Lactate 2.0 (0.4-2.0) mmol/L Calcium 8.4 L (8.6-10.3) mg/dl Phosphorus 3.5 Magnesium 1.6 L Total Bilirubin (0.2-1.0) mg/dl AST (13-39) U/L ALT (7-52) U/L Alkaline Phosphatase (34-104) U/L Total Protein (6.0-8.3) gm/dl Albumin (3.4-5.0) gm/dl Globulin (2.5-4.0) gm/dl Albumin/Globulin Ratio (0.9-2) Lipase (11-82) U/L 06/04/25 06/04/25 Range/Units 21:28 18:32 WBC 11.89 H (4.8-10.8) K/ul RBC 5.57 H (4.20-5.40) M/uL Hgb 17.1 H (12.0-16.0) g/dl Hct 48.8 H (37.0-47.0) % MCV 87.6 (80.0-100.0) fL MCH 30.7 (25.0-34.0) pg MCHC 35.0 (32.0-36.0) g/dL RDW Std Deviation 38.6 (36.4-46.3) fL RDW Coeff of Tad 12.0 (11.5-14.5) % Plt Count 375 (130-400) K/uL MPV 10.1 (9.4-12.4) fL Immature Gran % (Auto) 2.9 % Neut % (Auto) 68.6 % Lymph % (Auto) 20.2 % Travis % (Auto) 5.3 % Eos % (Auto) 1.9 % Baso % (Auto) 1.1 % Neut # (Auto) 8.15 H (1.40-6.50) K/uL Lymph # (Auto) 2.40 (1.20-3.40) K/uL Travis # (Auto) 0.63 H (0.11-0.59) K/uL Eos # (Auto) 0.23 (0.00-0.50) K/uL Baso # (Auto) 0.13 (0.00-0.20) K/uL Immature Gran # (Auto) 0.35 H (0.01-0.20) K/uL VBG pH 7.24 L (7.36-7.41) VBG pCO2 41 (38-50) mmHg VBG pO2 27 mmHg VBG HCO3 18 mmol/L VBG O2 Saturation < 60.0 % VBG Base Excess -9.3 mEq/L Sodium Cancelled 130 L (136-145) mmol/L Potassium Cancelled 4.3 (3.5-5.1) mmol/L Chloride Cancelled 96 L (98-107) mmol/L Carbon Dioxide Cancelled 16 L (21-32) mmol/L Anion Gap Cancelled 18 H (3-11) BUN Cancelled 15 (6-23) mg/dl Creatinine Cancelled 0.70 (0.6-1.2) mg/dl Est Cr Clr Drug Dosing Cancelled 77.0 ml/min eGFR Cancelled 102.07 BUN/Creatinine Ratio Cancelled 21.4 H (10-20) Glucose Cancelled 466 H* (70-99(Fasting)) mg/dl POC Glucose (70-99) mg/dl Estimat Average Glucose mg/dl Hemoglobin A1c (4.5-5.6) % Lactate (0.4-2.0) mmol/L Calcium Cancelled 9.0 (8.6-10.3) mg/dl Phosphorus Cancelled Magnesium Cancelled Total Bilirubin 0.4 (0.2-1.0) mg/dl AST 9 L (13-39) U/L ALT 6 L (7-52) U/L Alkaline Phosphatase 113 H (34-104) U/L Total Protein 6.9 (6.0-8.3) gm/dl Albumin 3.1 L (3.4-5.0) gm/dl Globulin 3.8 (2.5-4.0) gm/dl Albumin/Globulin Ratio 0.8 L (0.9-2) Lipase 10 L (11-82) U/L Diagnostic Findings ABDOMEN AND PELVIS CT WITHOUT CONTRAST CT DOSE: 539.97 mGy.cm HISTORY: Soft tissue infection of the anterior abdominal wall cellulitis, r/o abscess, suprapubic are TECHNIQUE: Multiaxial CT images of the abdomen and pelvis were performed without contrast. A dose lowering technique was utilized adhering to the principles of ALARA. COMPARISON STUDY: None. FINDINGS: Extensive coronary artery calcifications. Clear lung bases. There is no pneumatosis or pneumoperitoneum. The unenhanced spleen, mildly atrophic pancreas and liver appear unremarkable. Nodular thickening of the left greater than right adrenal gland suggestive of hyperplasia with possible underlying left adrenal adenoma. Distended gallbladder with layering cholelithiasis. The bladder wall measures upper limits of normal. No definite biliary ductal dilation identified. Developmental malrotation of the right kidney. Nonspecific bilateral perinephric stranding. Suspected urothelial thickening of the kidneys. No urolith or hydronephrosis. A Espinoza catheter is in place. Air is in the bladder lumen is likely secondary to instrumentation. Trace free pelvic fluid. Retroflexed uterus. Atherosclerosis of the aorta. No pathologically enlarged lymph nodes identified. Mild nonspecific distal esophageal wall thickening. Hyperdense material noted within the stomach and several loops of small bowel. There is wall thickening noted involving the ascending and transverse colon. Normal appendix. Generalized body wall edema. There is a superficial subcutaneous collection of the lower anterior abdominal wall/mons pubis without discrete wall noted containing several foci of air, conglomerate measuring 6.4 x 2.1 x 4.4 cm. T12 burst fracture with severe vertebral body height loss and fragmentation. 2 mm retropulsion. Chronic right posterior rib deformities. Mild paravertebral edema. IMPRESSION: 1. Anasarca with trace pelvic ascites. 6.4 cm phlegmon/developing abscess involves the midline lower anterior abdominal wall/mons pubis extending to the cutaneous surface. 2. Distended gallbladder with cholelithiasis. Findings could be correlated with right upper quadrant ultrasound. 3. T12 burst fracture with severe vertebral body height loss, 2 mm retropulsion and mild paravertebral edema. Subacute etiology is favored. This will be further evaluated and discussed on the already ordered MRI of the thoracic spine. 4. Nonspecific wall thickening of the ascending and transverse colon is likely secondary to partial distention. A nonspecific colitis could appear similarly. Personally reviewed ct scan findings and concur with above findings.
[2025-06-05 11:05] LABS: Hemoglobin A1C > 16.9 % (4.5-5.6)
--- NOTE | 2025-06-05 11:26 | CT Scan Report ---
ABDOMEN AND PELVIS CT WITHOUT CONTRAST CT DOSE: 539.97 mGy.cm HISTORY: Soft tissue infection of the anterior abdominal wall cellulitis, r/o abscess, suprapubic ar e TECHNIQUE: Multiaxial CT images of the abdomen and pelvis were performed without contrast. A dose lo wering technique was utilized adhering to the principles of ALARA. COMPARISON STUDY: None. FINDINGS: Extensive coronary artery calcifications. Clear lung bases. There is no pneumatosis or pneu moperitoneum. The unenhanced spleen, mildly atrophic pancreas and liver appear unremarkable. Nodular thickening of the left greater than right adrenal gland suggestive of hyperplasia with possible under lying left adrenal adenoma. Distended gallbladder with layering cholelithiasis. The bladder wall alice ures upper limits of normal. No definite biliary ductal dilation identified. Developmental malrotation of the right kidney. Nonspecific bilateral perinephric stranding. Suspected urothelial thickening of the kidneys. No urolith or hydronephrosis. A Espinoza catheter is in place. r is in the bladder lumen is likely secondary to instrumentation. Trace free pelvic fluid. Retroflexe d uterus. Atherosclerosis of the aorta. No pathologically enlarged lymph nodes identified. Mild nonsp ecific distal esophageal wall thickening. Hyperdense material noted within the stomach and several lo ops of small bowel. There is wall thickening noted involving the ascending and transverse colon. Norm al appendix. Generalized body wall edema. There is a superficial subcutaneous collection of the lower anterior abdominal wall/mons pubis without discrete wall noted containing several foci of air, congl omerate measuring 6.4 x 2.1 x 4.4 cm. T12 burst fracture with severe vertebral body height loss and f ragmentation. 2 mm retropulsion. Chronic right posterior rib deformities. Mild paravertebral edema. IMPRESSION: 1. Anasarca with trace pelvic ascites. 6.4 cm phlegmon/developing abscess involves the midline lower anterior abdominal wall/mons pubis extending to the cutaneous surface. 2. Distended gallbladder with cholelithiasis. Findings could be correlated with right upper quadrant ultrasound. 3. T12 burst fracture with severe vertebral body height loss, 2 mm retropulsion and mild paravertebra l edema. Subacute etiology is favored. This will be further evaluated and discussed on the already or dered MRI of the thoracic spine. 4. Nonspecific wall thickening of the ascending and transverse colon is likely secondary to partial d istention. A nonspecific colitis could appear similarly. 5. Equivocal urothelial thickening of the renal collecting systems. Correlate with urinalysis. ACT 112: Negative or not required by law. The above report was generated using voice recognition software. It may contain grammatical, syntax o r spelling errors. Electronically signed by: Efrain Cartagena M.D. 06/05/2025 11:24 AM
[2025-06-05] MEDS: POTASSIUM CHLORIDE CRTAB 20 MEQ TABCR PO ONE (11:27)
[2025-06-05] MEDS: MAGNESIUM OXIDE 400 MG TAB PO SCH (11:27)
--- NOTE | 2025-06-05 11:31 | Hospitalist Progress Note ---
Date of Service June 05, 2025 Assessment & Plan (1) DKA, type 2: (2) Suprapubic abscess: (3) Diabetes mellitus type 2 with complications: (4) T12 burst fracture: (5) Electrolyte abnormality: Plan Patient 55-year-old female initially presented with back pain due to presumed T1 2 burst fracture, however, in the ED was noted to be in DKA and a large suprapubic abdominal wall abscess was discovered. Patient was admitted for further care Continue IV antibiotics Reviewed CT scan of the abdomen pelvis consistent with abscess Discussed with surgical team, anticipating surgical intervention for I&D tomorrow. Anticipate patient may need wound VAC and/or ongoing wound care upon discharge. DKA has resolved, transition to subcutaneous insulin, pharmacy assisting with management Replace electrolytes as needed Follow laboratory studies Follow blood and urine cultures Patient reports that she has not had insurance for several years and that is why her diabetes has been uncontrolled. Has not been able to have her insulin for at least 3 years. Case management aware and involved and will be assisting patient with plans for medications upon discharge MRI thoracic and lumbar spines pending. Orthopedic spine Evaluation pending. Anticipate no interventions until infection is resolved and diabetes better controlled. Admission and Anticipated Discharge Date Admission Date: June 04, 2025 Subjective Patient reports feeling a little bit better. Friend at the bedside is also present. Patient states she is aware she has diabetes. Apparently had been on fairly good doses of insulin in the past but she lost her insurance and has not been able to get any of her medications for at least 3 years. She reports that she has had superficial abscesses in the past but never had MRSA that she is aware of. 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 She reports that the suprapubic abscess was there only for a past couple days did drain on its own somewhat. Physical Exam Physical Exam: Constitutional: Alert, nontoxic HEENT: Mucous membranes moist. Lungs: Clear to auscultation, decreased, no wheezes rales or rhonchi CV: S1-S2, regular Abdomen: Soft, nontender, nondistended, necrotic, erythematous, fluctuant abscess in the suprapubic region. With some tenderness to palpation Extremities: No significant edema Neuro: No focal deficits, generally weak Psych: Cooperative, normal mood Results & Data Results & Data Vital Signs (Past 12 Hours) Vital Signs Temp Pulse Pulse Resp BP BP Pulse Ox 06/05/25 07:44 36.7 C 88 20 115/70 95 06/05/25 05:36 92 H 06/05/25 02:31 36.8 C 99 H 14 113/74 100 06/04/25 23:30 109 H O2 Del Method 06/05/25 07:44 Room Air 06/05/25 05:36 06/05/25 02:31 Room Air 06/04/25 23:30 Diagnostic Findings Reviewed imaging, laboratory and diagnostic studies. Pertinent findings as below. WBCs 15.7 Hemoglobin 15.6 Sodium 133 Potassium 3.0 Carbon dioxide 20 Anion gap 8 Creatinine 0.65 Glucose 268 Hemoglobin A1c greater than 16.9 Calcium 7[address] abdomen pelvis reviewed. Phlegmon in the suprapubic abdominal wall. Distended gallbladder with some cholelithiasis, T12 burst fracture with retropulsion and paravertebral edema
--- NOTE | 2025-06-05 13:11 | History & Physical Report ---
Date of Service June 05, 2025 Assessment & Plan (1) T12 burst fracture: Plan: This time a new MRI of the thoracic spine is pending. She unfortunately is also developed an abdominal abscess that is scheduled for surgery tomorrow. I explained to the patient and her friend that she is a very poor surgical candidate from the from all an orthopedic perspective. She be at high risk for infection. We will make final recommendations pending her thoracic MRI but i deally we would avoid any surgery at this time. Admission and Anticipated Discharge Date Admission Date: June 04, 2025 History of Present Illness Chief Complaint: Worsening pain inability to manage activities of daily living Primary Care Provider: NO PCP This is a 55-year-old female with had a fall at work. She sustained a T12 fracture. She had called our office yesterday saying the symptoms have gotten markedly worse she was unable to get out of bed to urinate. In light of her decline we had her come to the emergency room to update imaging to rule out fu rther collapse of the T12 compression fracture. Patient was subsequently admitted. Allergies Allergy/AdvReac Type Severity Reaction Status Date / Time latex Allergy Itching Verified 06/05/25 10:37 Home Medications Medication Instructions Recorded Confirmed Type ibuprofen 200 mg tablet 600 - 800 mg PO Q6H PRN Pain 06/04/25 06/04/25 History Past Med/Surg History Problem List (Updated 06/05/25 @ 11:57 by Shine Lion DO) Electrolyte abnormality DKA, type 2 Diabetes mellitus type 2 with complications Suprapubic abscess Acute hyperglycemia (Acute) Back pain (Acute) Fall (Acute) T12 burst fracture (Acute) Social History Smoking Status: Current every day smoker Tobacco Type: Cigarettes Hx Alcohol Use: No Hx Substance Use: No Preferred Language: Persian Feels Safe at Home: Yes Physical Exam Physical Exam: Patient is currently in bed. She is eating. She is comfortable at this time. She is neurologically intact at testing lower extremities. Results & Data Results & Data Vital Signs (Past 12 Hours) Vital Signs Temp Pulse Pulse Resp BP BP Pulse Ox 06/05/25 11:38 36.5 C 80 18 107/68 96 06/05/25 07:44 36.7 C 88 20 115/70 95 06/05/25 05:36 92 H 06/05/25 02:31 36.8 C 99 H 14 113/74 100 O2 Del Method 06/05/25 11:38 Room Air 06/05/25 07:44 Room Air 06/05/25 05:36 06/05/25 02:31 Room Air
[2025-06-05] MEDS: LANTUS PER UNIT CHARGE SC ONE (13:46)
--- NOTE | 2025-06-05 13:46 | Pharmacy Report ---
Pharmacy Glycemic Short Note 2 - Date of Service June 05, 2025 - Glycemic Short BSG Results (Last 24 hours): 06/04/25 06/04/25 06/04/25 18:32 21:28 22:00 Glucose 466 H* Cancelled 396 H* POC Glucose 366 H* 06/04/25 06/04/25 06/05/25 23:01 23:59 00:57 Glucose 321 H* POC Glucose 332 H* 344 H* 06/05/25 06/05/25 06/05/25 01:12 02:05 03:09 Glucose POC Glucose 296 H 243 H 183 H 06/05/25 06/05/25 06/05/25 04:04 05:03 05:39 Glucose 268 H POC Glucose 193 H 232 H 06/05/25 06/05/25 06/05/25 05:53 07:19 11:56 Glucose POC Glucose 209 H 235 H 275 H OUTPATIENT ANTIDIABETIC REGIMEN: * none, on insulin in the past, but has not had insurance for over 3 years * HbA1c greater than 16.9% (06/05/25) ASSESSMENT: * Cat is a 55 year old female with a history of type 2 diabetes mellitus. Pharmacy has been consulted to assist with glycemic management while inpatient. * BSGs on admission elevated at 466 found to be in DKA with anion gap of 20, Co2 13, VBG pH 7.24. The decision was made to begin an insulin drip to treat. Anion gap closed this AM, VBG pH improved, but potassium low. Property Specialist ordered insulin drip to be held while potassium repleted. This AM, Dr. Lion discontinued dextrose fluids and requested transition off of the insulin drip and to subcutaneous insulin. * Basal insulin ordered at a weight based stress of 3 with evening dose reductions if BSGs well controlled. NovoLog at a weight based stress of 3. She is receiving Zosyn for treatment of an abdominal abscess. PLAN FOR INPATIENT GLYCEMIC CONTROL: * Basal insulin * Lantus 5 units SQ this AM, additional 10 units given once diet ordered at lunch * Lantus 0-15 units SQ HS (see eMAR for additional details) * Bolus insulin * NovoLog per scale ACHS or Q6hrs while NPO * Goal Range: Low 110 mg/dL - High 140 mg/dL * Correction Factor: 30 mg/dL/unit * Nutritional / Prandial insulin per carb ratio of 1 unit per 10 grams CHO consumed
[2025-06-05 15:27] LABS: Anion Gap 5.0 (3-11); Blood Urea Nitrogen 20.0 mg/dl (6-23); Calcium 7.7 mg/dl (8.6-10.3); Carbon Dioxide 22.0 mmol/L (21-32); Chloride 104.0 mmol/L (98-107); Creatinine Clr Calc Pharmacy 70.8 ml/min; Glucose 415.0 mg/dl (70-99(Fasting)); Magnesium 1.6 mg/dl (1.7-2.4); Potassium 4.6 mmol/L (3.5-5.1); Sodium 131.0 mmol/L (136-145)
[2025-06-05] MEDS: INSULIN HUMAN REGULAR PER UNIT 5 UNITS in SYRINGE 4.95 ML IV ONE ×2 (17:56→20:46)
[2025-06-05] MEDS: ACETAMINOPHEN 325 MG TAB PO PRN (18:02)
[2025-06-05] MEDS: CALCIUM CARBONATE 500 MG CHEWABLE TAB PO STA (20:29)
[2025-06-05] MEDS: LANTUS PER UNIT CHARGE SC SCH (20:29)
[2025-06-05] MEDS: GADOBUTROL 65ML VIAL IV ONE (21:46)
[2025-06-05] MEDS ORDERED: INSULIN REGULAR 250 UNITS in SODIUM CHLORIDE 0.9% 247.5 ML IV SCH (22:00)
[2025-06-06] MEDS: INSULIN ASPART PER UNIT CHARGE SC SCH ×2 (00:06→04:11)
--- NOTE | 2025-06-06 00:32 | Magnetic Resonance Report ---
Exam(s): MRI T SPINE W/WO Contrast IV Amt: 5.5mL Gadavist given existing IV EXAM: MR Thoracic Spine Without and With Intravenous Contrast CLINICAL HISTORY: Reason for exam: fall, back pain. t 12 fx. TECHNIQUE: Magnetic resonance images of the thoracic spine without and with intravenous contrast in multiple planes. CONTRAST: Patient received 5.5mL Gadavist given existing IV of IV contrast COMPARISON: No relevant prior studies available. FINDINGS: Vertebrae: Comminuted displaced T12 vertebral body compression fracture resulting in 50% vertebral body height loss. Discs/spinal canal/neural foramina: No acute findings. No significant disc disease. No spinal canal stenosis. Spinal cord: Unremarkable. Normal signal. No abnormal enhancement. Soft tissues: Unremarkable. IMPRESSION: Comminuted displaced T12 vertebral body compression fracture resulting in 50% vertebral body height loss Electronically signed by: Reyes Jaramillo MD 06/06/25 00:31 AM
[2025-06-06] MEDS ORDERED: INSULIN ASPART PER UNIT CHARGE SC SCH ×2 (07:30)
[2025-06-06] MEDS: LANTUS PER UNIT CHARGE SC SCH (08:05)
[2025-06-06] MEDS: MAGNESIUM SULFATE / D5W 1 GM/100 ML BAG IV ONE (08:06)
[2025-06-06 08:21] LABS: Hematocrit (blood only) 42.1 % (37.0-47.0); Hemoglobin 14.8 g/dl (12.0-16.0); Mean Corpuscular Hemoglobin 31.0 pg (25.0-34.0); Mean Corpuscular Volume 88.1 fL (80.0-100.0); Platelet Count 333 K/uL (130-400); RDW Standard Deviation 38.5 fL (36.4-46.3); Red Blood Count 4.78 M/uL (4.20-5.40); White Blood Count 10.45 K/ul (4.8-10.8)
[2025-06-06] MEDS: MAGNESIUM OXIDE 400 MG TAB PO SCH (08:41)
[2025-06-06] MEDS ORDERED: LANTUS PER UNIT CHARGE SC SCH ×2 (09:00)
--- NOTE | 2025-06-06 09:01 | History & Physical Bridge Note ---
Date of Service June 06, 2025 History & Physical Bridge Note I have examined the patient, reviewed the History & Physical and in the interval since the performance of the History & Physical I have noted the following changes of clinical significance: no changes noted
[2025-06-06] MEDS ORDERED: DEXAMETHASONE SOD INJ 4 MG/ML VIAL ONE (10:07)
[2025-06-06] MEDS ORDERED: LIDOCAINE 2% 2 ML VIAL/AMP(20MG/ML) INFIL ONE (10:07)
[2025-06-06] MEDS ORDERED: PROPOFOL IV EMULSION 10 MG/ML 20 ML VIAL IV ONE (10:07)
[2025-06-06] MEDS ORDERED: ONDANSETRON INJ 2 MG/ML 2 ML VIAL ONE (10:07)
[2025-06-06] MEDS ORDERED: MIDAZOLAM HCL 1 MG/ML 2ML VIAL ONE (10:08)
[2025-06-06] MEDS: LACTATED RINGER'S 1,000 ML IV SCH (10:13)
[2025-06-06] MEDS ORDERED: ATROPINE SULFATE 0.1 MG/ML 10ML SYR IV PRN (10:57)
[2025-06-06] MEDS ORDERED: PROMETHAZINE HCL 6.25 MG in SODIUM CHLORIDE 0.9% 50 ML IV PRN (10:57)
--- NOTE | 2025-06-06 10:57 | Anesthesiology Consultation ---
Date of Service June 06, 2025 Assessment & Plan ASA ASA3 Proposed Anesthesia Anesthesia Type: General Risk / Benefits Reviewed With: PT / POA / Parent / Guardian, Accepts Plan and Informed Consent Obtained History Surgery Operation Date: 06/06/25 09:20 Proposed Procedures p Incision and Drainage Suprapuic Abscess - Dane Keen MD Height/Weight Height: 5 ft 6 in Weight: 55.7 kg Allergies Allergy/AdvReac Type Severity Reaction Status Date / Time latex Allergy Itching Verified 06/05/25 10:37 Medications Home Medications Medication Instructions Recorded Confirmed Last Taken ibuprofen 200 mg tablet 600 - 800 mg PO Q6H PRN Pain 06/04/25 06/04/25 Unknown Active Medications Generic Name Dose Route Start Last Admin Trade Name Freq PRN Reason Stop Dose Admin Acetaminophen 650 mg 06/04/25 22:40 06/05/25 18:02 Acetaminophen 325 Mg Tab PO 07/04/25 22:39 650 mg Q4H PRN Administration pain/fever Piperacillin Sod/Tazobactam Sod 4.5 gm in 100 mls @ 25 mls/hr 06/05/25 04:00 06/06/25 08:14 Zosyn IV 06/12/25 03:59 Infused Q8H SHEILA Infusion Protocol Sodium Chloride 1,000 mls @ 80 mls/hr 06/05/25 08:00 06/06/25 10:55 Nss IV 06/08/25 07:59 Infused .[id number] SHEILA Infusion Lactated Ringer's 1,000 mls @ 15 mls/hr 06/06/25 09:00 06/06/25 10:13 Lr IV 06/09/25 08:59 15 mls/hr .Q24H SHEILA Administration Insulin Aspart 0 units 06/06/25 04:00 06/06/25 08:06 Insulin Aspart Per Unit Charge SC 07/06/25 03:59 3 units Q4 SHEILA Administration Insulin Glargine 0 units 06/05/25 21:00 06/05/25 20:29 Lantus Per Unit Charge SC 07/05/25 20:59 15 units HS SHEILA Administration Protocol Magnesium Oxide 800 mg 06/06/25 09:00 06/06/25 08:41 Magnesium Oxide 400 Mg Tab PO 07/06/25 08:59 800 mg BID SHEILA Administration NPO Date Last Intake of Fluids: 06/06/25 Time Last Intake of Fluids: 08:41 Last Intake of Fluids Comment: Sips w/ meds this AM Date Last Intake of Solids: 06/05/25 Time Last Intake of Solids: 22:00 Exercise / Class Metabolic Activity II 4-5 Yardwork/Stairs/Walk up hill Past Anesthesia History No Hx of Anesthesia Complications and No Family Hx of Anesthesia Complications History of PONV No Hx of PONV and No Hx of Motion Sickness Social History Smoking Status: Current every day smoker Hx Alcohol Use: No Hx Substance Use: No Physical Exam Vital Signs Last Vital Signs Temp 36.7 C 06/06/25 10:07 Pulse 77 06/06/25 10:07 Resp 16 06/06/25 10:07 BP 113/73 06/06/25 10:07 Pulse Ox 97 06/06/25 10:07 O2 Del Method Room Air 06/06/25 10:07 Constitutional no acute distress ENMT Mouth: no dentition abnormality Thyromental Distance: > or= 3.5 Finger Breadths Mallampati Class: II Neck normal visual inspection Respiratory normal respiratory effort; no respiratory distress Auscultation: lungs clear to auscultation bilaterally Cardiovascular Rate/Rhythm: regular rate and regular rhythm Heart Sounds: no murmur Musculoskeletal Spine: normal cervical ROM Psychiatric Orientation: alert and oriented x 3 Testing Laboratory Results 06/06/25 07:25 06/05/25 14:16 Hemoglobin A1c > 16.9 % (4.5-5.6) H 06/05/25 05:39 06/05/25 00:10 Gram Stain - Final Abdomen Wound Culture - Preliminary Staphylococcus aureus Strep agalactiae (group B) 06/04/25 21:28 Aerobic Blood Culture - Preliminary Blood No growth in Aerobic bottle after 24 hours. Anaerobic Blood Culture - Preliminary No growth in Anaerobic bottle after 24 hours. 06/04/25 21:28 Aerobic Blood Culture - Preliminary Blood No growth in Aerobic bottle after 24 hours. Anaerobic Blood Culture - Preliminary No growth in Anaerobic bottle after 24 hours. 06/06/25 06/06/25 06/06/25 10:09 07:52 04:02 POC Glucose 135 H 193 H 168 H 06/05/25 23:35 POC Glucose 182 H Day of Procedure Evaluation. Date of Surgery June 06, 2025 Height/Weight Height: 5 ft 6 in Weight: 55.7 kg Vital Signs Last Vital Signs Temp 36.7 C 06/06/25 10:07 Pulse 77 06/06/25 10:07 Resp 16 06/06/25 10:07 BP 113/73 06/06/25 10:07 Pulse Ox 97 06/06/25 10:07 O2 Del Method Room Air 06/06/25 10:07 Allergies Allergy/AdvReac Type Severity Reaction Status Date / Time latex Allergy Itching Verified 06/05/25 10:37 Medications Home Medications Medication Instructions Recorded Confirmed Last Taken ibuprofen 200 mg tablet 600 - 800 mg PO Q6H PRN Pain 06/04/25 06/04/25 Unknown Active Medications Generic Name Dose Route Start Last Admin Trade Name Freq PRN Reason Stop Dose Admin Acetaminophen 650 mg 06/04/25 22:40 06/05/25 18:02 Acetaminophen 325 Mg Tab PO 07/04/25 22:39 650 mg Q4H PRN Administration pain/fever Piperacillin Sod/Tazobactam Sod 4.5 gm in 100 mls @ 25 mls/hr 06/05/25 04:00 06/06/25 08:14 Zosyn IV 06/12/25 03:59 Infused Q8H SHEILA Infusion Protocol Sodium Chloride 1,000 mls @ 80 mls/hr 06/05/25 08:00 06/06/25 10:55 Nss IV 06/08/25 07:59 Infused .[id number] SHEILA Infusion Lactated Ringer's 1,000 mls @ 15 mls/hr 06/06/25 09:00 06/06/25 10:13 Lr IV 06/09/25 08:59 15 mls/hr .Q24H SHEILA Administration Insulin Aspart 0 units 06/06/25 04:00 06/06/25 08:06 Insulin Aspart Per Unit Charge SC 07/06/25 03:59 3 units Q4 SHEILA Administration Insulin Glargine 0 units 06/05/25 21:00 06/05/25 20:29 Lantus Per Unit Charge SC 07/05/25 20:59 15 units HS SHEILA Administration Protocol Magnesium Oxide 800 mg 06/06/25 09:00 06/06/25 08:41 Magnesium Oxide 400 Mg Tab PO 07/06/25 08:59 800 mg BID SHEILA Administration Past Anesthesia History No Hx of Anesthesia Complications and No Family Hx of Anesthesia Complications History of PONV No Hx of PONV and No Hx of Motion Sickness NPO Date Last Intake of Fluids: 06/06/25 Time Last Intake of Fluids: 08:41 Last Intake of Fluids Comment: Sips w/ meds this AM Date Last Intake of Solids: 06/05/25 Time Last Intake of Solids: 22:00 HCG & FBG Results 06/06/25 06/06/25 06/06/25 10:09 07:52 04:02 POC Glucose 135 H 193 H 168 H 06/05/25 23:35 POC Glucose 182 H Home Medications Home Medications Medication Instructions Recorded Confirmed Last Taken ibuprofen 200 mg tablet 600 - 800 mg PO Q6H PRN Pain 06/04/25 06/04/25 Unknown Active Medications Generic Name Dose Route Start Last Admin Trade Name Freq PRN Reason Stop Dose Admin Acetaminophen 650 mg 06/04/25 22:40 06/05/25 18:02 Acetaminophen 325 Mg Tab PO 07/04/25 22:39 650 mg Q4H PRN Administration pain/fever Piperacillin Sod/Tazobactam Sod 4.5 gm in 100 mls @ 25 mls/hr 06/05/25 04:00 06/06/25 08:14 Zosyn IV 06/12/25 03:59 Infused Q8H SHEILA Infusion Protocol Sodium Chloride 1,000 mls @ 80 mls/hr 06/05/25 08:00 06/06/25 10:55 Nss IV 06/08/25 07:59 Infused .[id number] SHEILA Infusion Lactated Ringer's 1,000 mls @ 15 mls/hr 06/06/25 09:00 06/06/25 10:13 Lr IV 06/09/25 08:59 15 mls/hr .Q24H SHEILA Administration Insulin Aspart 0 units 06/06/25 04:00 06/06/25 08:06 Insulin Aspart Per Unit Charge SC 07/06/25 03:59 3 units Q4 SHEILA Administration Insulin Glargine 0 units 06/05/25 21:00 06/05/25 20:29 Lantus Per Unit Charge SC 07/05/25 20:59 15 units HS SHEILA Administration Protocol Magnesium Oxide 800 mg 06/06/25 09:00 06/06/25 08:41 Magnesium Oxide 400 Mg Tab PO 07/06/25 08:59 800 mg BID SHEILA Administration Exercise / Class Metabolic Activity Metabolic Activity: II 4-5 Yardwork/Stairs/Walk up hill Physical Exam Constitutional: no acute distress Mouth: no dentition abnormality Thyromental Distance: > or= 3.5 Finger Breadths Mallampati Class: II Neck: + visual inspection normal Respiratory: + respiratory effort normal and + clear to auscultation bilaterally; no respiratory distress Cardiovascular: + regular rate and + regular rhythm; no murmur Musculoskeletal: no limited cervical ROM Psychiatric: + alert and + oriented x 3 ASA ASA3 Proposed Anesthesia Proposed Anesthesia: General Risk / Benefits Reviewed With: PT / POA / Parent / Guardian, Accepts Plan and Informed Consent Obtained
[2025-06-06] MEDS: BUPIVACAINE/EPINEPHRINE 0.5% MPF 1:200,000 30 ML VIAL ONE (11:36)
--- NOTE | 2025-06-06 11:39 | Operative Report ---
Post Operative Report Pre & Post Diagnosis Operation Date: 06/06/25 09:20 Pre-Op Diagnosis: Suprapubic Abscess and necrotic suprapubic ulcer Post-Op Diagnosis: Same I identified the patient and participated in the time-out.: Yes Procedure Operation Date: 06/06/25 09:20 Actual Procedures p Incision and Drainage Suprapuic Abscess, Debridement of suprapubic ulcer skin and subcutaneous tissue(Not Applicable) - Dane Keen MD Surgeon Dane Keen MD Community Resource Consultant none Estimated Blood Loss 8 Findings Consistent with Post-Op Diagnosis Specimens Intra-op culture Necrotic ulcer Drains none Anesthesia Type General Complications none Disposition Accompanied Patient To Recovery: No Disposition: Recovery Room Indications This is a 55-year-old female with poorly controlled diabetes who presented with a suprapubic abscess and necrotic ulcer associated. Will plan on doing an I&D and debridement of this necrotic abscess. Description of Procedure The patient was taken to the OR. She was put under excellent general anesthesia. Her suprapubic area was prepped and draped in normal sterile fashion. There was a necrotic ulcer which was sharply debrided down through skin and subcutaneous tissues. All the necrotic material was removed and sent for pathologic evaluation. This facilitated entering the deep abscess cavity which was cultured. All the purulent material was decompressed. The wound was then irrigated and suctioned out to clear. Once this was done, the wound was packed with Kerlix and a sterile dressing was applied. She tolerated procedure without complications. I attest to the content of the Intraoperative Record and any orders documented therein. Any exceptions are noted below.
[2025-06-06] MEDS: HYDROmorphone INJ 2 MG/ML SYR/VIAL IV PRN (12:04)
--- NOTE | 2025-06-06 13:23 | Anesthesiology Progress Note ---
Date of Service June 06, 2025 Anesthesia Post Procedure Vital Signs Vital Signs: Temp Pulse Pulse Resp BP BP Pulse Ox 06/06/25 13:05 82 16 100/62 98 06/06/25 12:55 87 15 103/63 96 06/06/25 12:45 36.5 C 82 12 99/67 L 96 06/06/25 12:35 80 16 94/58 L 95 06/06/25 12:25 79 15 94/61 L 94 06/06/25 12:15 80 13 98/65 L 94 06/06/25 12:05 82 17 112/72 99 06/06/25 11:55 80 18 105/67 100 06/06/25 11:45 79 17 101/66 99 06/06/25 11:37 36.3 C L 103 H 18 99/62 L 99 06/06/25 10:07 36.7 C 77 16 113/73 97 06/06/25 06:59 36.6 C 80 18 115/74 97 06/05/25 23:32 36.6 C 79 18 113/74 98 06/05/25 22:05 36.7 C 83 18 109/66 97 06/05/25 19:51 36.3 C L 84 18 121/73 98 06/05/25 16:14 36.4 C L 79 20 117/78 99 O2 Del Method O2 Flow Rate 06/06/25 13:05 Room Air 06/06/25 12:55 Room Air 06/06/25 12:45 Room Air 06/06/25 12:35 Room Air 06/06/25 12:25 Room Air 06/06/25 12:15 Room Air 06/06/25 12:05 Oxymask 2 06/06/25 11:55 Oxymask 4 06/06/25 11:45 Oxymask 6 06/06/25 11:37 Oxymask 6 06/06/25 10:07 Room Air 06/06/25 06:59 Room Air 06/05/25 23:32 Room Air 06/05/25 22:05 Room Air 06/05/25 19:51 Room Air 06/05/25 16:14 Room Air Pain Intensity Lower Abdomen: Pain Intensity: 9 Transfer of Care Handoff Completed per policy Notes Mental Status: alert / awake / arousable and participated in evaluation Nausea / Vomiting: adequately controlled Pain: adequately controlled Airway Patency, RR, SpO2: stable & adequate BP & HR: stable & adequate Hydration State: stable & adequate Anesthetic Complications: no major complications apparent and Pt Satisfied with anesthetic care
[2025-06-06] MEDS ORDERED: MoRPHine SULFATE 2 MG/ML CARP IV PRN (13:35)
--- NOTE | 2025-06-06 14:14 | Pharmacy Report ---
Pharmacy Glycemic Short Note 2 - Date of Service June 06, 2025 - Glycemic Short BSG Results (Last 24 hours): 06/05/25 06/05/25 06/05/25 14:16 15:35 17:00 Glucose 415 H* POC Glucose 343 H* 336 H* 06/05/25 06/05/25 06/05/25 17:00 20:14 20:15 Glucose POC Glucose 327 H* 349 H* 373 H* 06/05/25 06/05/25 06/06/25 22:03 23:35 04:02 Glucose POC Glucose 251 H 182 H 168 H 06/06/25 06/06/25 06/06/25 07:52 10:09 11:37 Glucose POC Glucose 193 H 135 H 133 H OUTPATIENT ANTIDIABETIC REGIMEN: * none, on insulin in the past, but has not had insurance for over 3 years * HbA1c greater than 16.9% (06/05/25) ASSESSMENT: 06/06: * Cat received 65 units of SQ insulin yesterday (30 were basal) plus IV regular from the insulin drip and 2 IV regular boluses of 5 units. * Hyperglycemia yesterday from early drip transition and suspect from basal deficiency. BSGs trending down overnight after IV boluses and overnight checks. NovoLog significantly tightened past a weight based stress of 2. Will give yesterday's basal dose and allow for additonal if BSGs remain elevated. Suspect once stabilized will need to back off insulin regimen some. * Went to the OR for I&D of abdominal abscess today, received danny claude and crackers uncovered in PACU, may have some hyperglycemia with dinner. 06/05: * Cat is a 55 year old female with a history of type 2 diabetes mellitus. Pharmacy has been consulted to assist with glycemic management while inpatient. * BSGs on admission elevated at 466 found to be in DKA with anion gap of 20, Co2 13, VBG pH 7.24. The decision was made to begin an insulin drip to treat. Anion gap closed this AM, VBG pH improved, but potassium low. Warehouse Manager ordered insulin drip to be held while potassium repleted. This AM, Dr. Lion discontinued dextrose fluids and requested transition off of the insulin drip and to subcutaneous insulin. * Basal insulin ordered at a weight based stress of 3 with evening dose reductions if BSGs well controlled. NovoLog at a weight based stress of 3. She is receiving Zosyn for treatment of an abdominal abscess. PLAN FOR INPATIENT GLYCEMIC CONTROL: * Basal insulin * Lantus 10 units SQ this AM (reduced for NPO status), additional 20 units order for dinner x1 * Lantus 0-15 units SQ HS (see eMAR for additional details) * Lantus 30 units SQ daily starting tomorrow * Bolus insulin * NovoLog per scale ACHS or Q6hrs while NPO * Goal Range: Low 110 mg/dL - High 140 mg/dL * Correction Factor: 25 mg/dL/unit * Nutritional / Prandial insulin per carb ratio of 1 unit per 9 grams CHO consumed
--- NOTE | 2025-06-06 15:03 | Hospitalist Progress Note ---
Date of Service June 06, 2025 Assessment & Plan (1) DKA, type 2: Plan: Resolved (2) Suprapubic abscess: Plan: Post I&D on 06/06/2025 (3) Diabetes mellitus type 2 with complications: (4) T12 burst fracture: (5) Electrolyte abnormality: Plan: Improved Plan Patient 55-year-old female presented initially for imaging associated with a T12 fracture and subsequently found to be in DKA and evidence of a suprapubic skin abscess Status post I&D today of suprapubic abscess. Continue wound care as directed by surgery Glucoses reviewed, overall good control, insulin management per pharmacy Communication with Dr. Juarez, no plans for any type of intervention on the burst fracture of T12 while diabetes is uncontrolled and patient being treated for infection. Dr. Juarez said his office did take care of Workmen's Comp. paperwork. Continue with pain medications for pain control Therapies Case management involved in coordinating outpatient follow-up and wound care Magnesium oral supplementation plus antibiotics as a cause of patient's loose stools. May need to give some IV magnesium Check laboratory studies in a.m. Anticipate patient will be ready for discharge in 1 to 2 days Admission and Anticipated Discharge Date Admission Date: June 04, 2025 Subjective Patient seen before surgical debridement today. Patient's biggest concern is her back pain and her Workmen's Comp. papers. States that her back pain is such that she is really unable to do much more activity the other than laying in bed. Patient having loose stools Physical Exam Physical Exam: Constitutional: Alert, nontoxic HEENT: Mucous membranes moist. Lungs: Clear to auscultation, decreased, no wheezes rales or rhonchi CV: S1-S2, regular Abdomen: Soft, nontender, nondistended, dressing over suprapubic wound Extremities: No significant edema Neuro: No focal deficits Psych: Cooperative, normal mood Results & Data Results & Data Vital Signs (Past 12 Hours) Vital Signs Temp Pulse Pulse Resp BP BP Pulse Ox 06/06/25 14:36 36.5 C 84 14 96/60 L 99 06/06/25 14:10 36.6 C 90 14 119/71 98 06/06/25 13:40 36.6 C 84 14 95/59 L 97 06/06/25 13:15 86 15 103/65 98 06/06/25 13:05 82 16 100/62 98 06/06/25 12:55 87 15 103/63 96 06/06/25 12:45 36.5 C 82 12 99/67 L 96 06/06/25 12:35 80 16 94/58 L 95 06/06/25 12:25 79 15 94/61 L 94 06/06/25 12:15 80 13 98/65 L 94 06/06/25 12:05 82 17 112/72 99 06/06/25 11:55 80 18 105/67 100 06/06/25 11:45 79 17 101/66 99 06/06/25 11:37 36.3 C L 103 H 18 99/62 L 99 06/06/25 10:07 36.7 C 77 16 113/73 97 06/06/25 06:59 36.6 C 80 18 115/74 97 O2 Del Method O2 Flow Rate 06/06/25 14:36 Room Air 06/06/25 14:10 Room Air 06/06/25 13:40 Room Air 06/06/25 13:15 Room Air 06/06/25 13:05 Room Air 06/06/25 12:55 Room Air 06/06/25 12:45 Room Air 06/06/25 12:35 Room Air 06/06/25 12:25 Room Air 06/06/25 12:15 Room Air 06/06/25 12:05 Oxymask 2 06/06/25 11:55 Oxymask 4 06/06/25 11:45 Oxymask 6 06/06/25 11:37 Oxymask 6 06/06/25 10:07 Room Air 06/06/25 06:59 Room Air Diagnostic Findings Reviewed imaging, laboratory and diagnostic studies. Pertinent findings as below. WBCs 10.4 Hemoglobin 14.8 Glucoses overall well-controlled Reviewed operative report
[2025-06-06] MEDS: GADOBUTROL 30ML VIAL IV ONE (15:10)
--- NOTE | 2025-06-06 15:42 | Magnetic Resonance Report ---
MRI OF THE LUMBAR SPINE WITH AND WITHOUT CONTRAST CLINICAL HISTORY: fall, back pain COMPARISON STUDY: CT of the abdomen and pelvis and thoracic spine MRI June 05, 2025. TECHNIQUE: Utilizing a 3 Charisse magnet and dedicated coil, multiplanar, multiecho imaging of the lumb ar spine was performed before and after uneventful IV administration of 6 mL of Gadavist. FINDINGS: For purposes of numbering on this exam, the L5-S1 disc space is assigned to axial image 47 of 51. Ali gnment of the lumbar spine is anatomic. Vertebral body heights within the lumbar spine are preserved. A 1.4 cm T1 and T2 hyperintense lesion within the L4 vertebral body is suggestive of a hemangioma. T here is a 1.5 cm T1 and T2 hypointense L1 vertebral body lesion without significant associated enhanc ement. A severe T12 burst fracture is noted with mild retropulsion. This is depicted on the thoracic spine MRI June 05, 2025. Associated marrow edema and enhancement is present. There is also mild edema and enhancement along the superior plate of L1. Mild central canal stenosis at the T11-T12 and T12-L1 levels is present. Mild multilevel facet arthrosis within lumbar spine. L1-2: The central canal and neural foramen are patent. L2-3: The central canal and neural foramen are patent. L3-4: The central canal and neural foramen are patent. L4-5: The central canal and neural foramen are patent. L5-S1: The central canal and neural foramen are patent. IMPRESSION: 1. No lumbar spine fractures. 2. Minimal degenerative changes within the lumbar spine. No central canal or neural foraminal stenosi s within the lumbar spine. 3. Redemonstration of a severe T12 burst fracture with mild retropulsion, as shown on MRI of June 05, 2025. 4. 1.5 cm nonenhancing T1 and T2 hypointense L1 vertebral body lesion. Although indeterminate, a reese gn etiology is favored. This. Be assessed with a follow-up MRI in 6 months to ensure stability. ACT 112: Negative or not required by law. Electronically signed by: Mason Baum M.D. 06/06/2025 3:39 PM
[2025-06-06] MEDS: LANTUS PER UNIT CHARGE SC ONE (17:11)
[2025-06-06] MEDS: MAGNESIUM SULFATE / D5W 1 GM/100 ML BAG IV SCH (17:18)
[2025-06-07 06:10] LABS: Hematocrit (blood only) 42.2 % (37.0-47.0); Hemoglobin 14.2 g/dl (12.0-16.0); Mean Corpuscular Hemoglobin 30.2 pg (25.0-34.0); Mean Corpuscular Volume 89.8 fL (80.0-100.0); Platelet Count 309 K/uL (130-400); RDW Standard Deviation 40.7 fL (36.4-46.3); Red Blood Count 4.70 M/uL (4.20-5.40); White Blood Count 8.80 K/ul (4.8-10.8)
[2025-06-07 06:37] LABS: Anion Gap 3.0 (3-11); Blood Urea Nitrogen 16.0 mg/dl (6-23); Calcium 7.7 mg/dl (8.6-10.3); Carbon Dioxide 27.0 mmol/L (21-32); Chloride 109.0 mmol/L (98-107); Creatinine Clr Calc Pharmacy 107.5 ml/min; Glucose 141.0 mg/dl (70-99(Fasting)); Magnesium 1.7 mg/dl (1.7-2.4); Potassium 3.6 mmol/L (3.5-5.1); Sodium 139.0 mmol/L (136-145)
[2025-06-07] MEDS: LANTUS PER UNIT CHARGE SC SCH (09:05)
--- NOTE | 2025-06-07 09:42 | Hospitalist Progress Note ---
Date of Service June 07, 2025 Assessment & Plan (1) DKA, type 2: Plan: Resolved (2) Suprapubic abscess: Plan: Post I&D on 06/06/2025 (3) Diabetes mellitus type 2 with complications: (4) T12 burst fracture: (5) Electrolyte abnormality: Plan: Improved Plan 55-year-old female presented initially after Dr Juarez sent her in for further imaging after outpatient MRI. Has ongoing back pain since March after a dog attacked her Found to have T12 burst fracture, suprapubic abd wall abscess and was in DKA Managed for DKA DKA now resolved HbA1c >16.9 Patient reported she was on insulin and some antidiabetic some years ago but stopped due to insurance issues Needs insulin on discharge CM on board S/p Incision and Drainage on 06/06/25 for abscess Culture prelim results growing MRSA, strep Currently on zosyn Add vancomycin Started on probiotics ID consult Continue wound care per surgeon Per Previous Provider, Dr. Juarez has no plans for any type of intervention on the burst fracture of T12 while diabetes is uncontrolled and patient being treated for infection. Continue with pain medications for pain control Awaiting PT/OT eval Full code DVT ppx- hep sq I spent a total of 50 minutes coordinating, documenting and providing care for this patient excluding time spent in performance of separately billed services Admission and Anticipated Discharge Date Admission Date: June 04, 2025 Subjective Patient seen and examined Reports mid back pain especially with movement Reports diarrhea. No hematochezia Denied cough, chest pain, SOB Physical Exam Constitutional: + well hydrated; no acute distress Eyes: PERRL, conjunctivae normal, anicteric sclerae ENMT: external ear and nose normal, oropharynx normal Respiratory: normal respiratory effort, lungs clear to auscultation Cardiovascular: Rate/Rhythm: regular rate and regular rhythm Gastrointestinal (Abdomen): Soft, nontender, normal bowel sounds Stained dressing over suprapubic i&D site Musculoskeletal: No pedal edema Neurologic: PERRL, EOMI, accommodation nl, no face palsy, no dysarthria Psychiatric: A+Ox3, euthymic affect Results & Data Results & Data Vital Signs (Past 12 Hours) Vital Signs Temp Pulse Resp BP Pulse Ox O2 Del Method 06/07/25 03:41 36.5 C 76 16 103/67 99 Room Air 06/06/25 23:36 36.8 C 76 16 109/68 99 Room Air Laboratory Results Abnormal lab results 06/06/25 06/06/25 06/06/25 Range/Units 11:37 16:53 20:08 Chloride (98-107) mmol/L Creatinine (0.6-1.2) mg/dl BUN/Creatinine Ratio (10-20) Glucose (70-99(Fasting)) mg/dl POC Glucose 133 H 265 H 235 H (70-99) mg/dl Calcium (8.6-10.3) mg/dl 06/06/25 06/07/25 06/07/25 Range/Units 23:33 03:39 05:49 Chloride 109 H (98-107) mmol/L Creatinine 0.52 L (0.6-1.2) mg/dl BUN/Creatinine Ratio 30.8 H (10-20) Glucose 141 H (70-99(Fasting)) mg/dl POC Glucose 131 H 140 H (70-99) mg/dl Calcium 7.7 L (8.6-10.3) mg/dl 06/07/25 Range/Units 07:39 Chloride (98-107) mmol/L Creatinine (0.6-1.2) mg/dl BUN/Creatinine Ratio (10-20) Glucose (70-99(Fasting)) mg/dl POC Glucose 155 H (70-99) mg/dl Calcium (8.6-10.3) mg/dl
[2025-06-07] MEDS ORDERED: VANCOMYCIN CONSULT ACTIVE PRN (10:11)
--- NOTE | 2025-06-07 10:44 | Infectious Disease Consult ---
Date of Service June 07, 2025 Telehealth Information I performed this visit using a real-time telehealth connection between my location and the patients location ([facility]). After connecting through interactive tele-video, patient was identified by name and date of and/or wristband check.Patient (or authorized healthcare outside sales representative insurance) was informed that this was a telemedicine visit and it was being conducted confidentially over secure lines. My office door was closed and no one else was present in the room with me.Patient (or authorized healthcare outside sales representative insurance) provided consent to proceed with the visit, expressed an understanding of privacy and security of the telemedicine visit, and gave permission to have a hospital outside sales representative insurance in the room in order to assist with the visit and to conduct portions of the visit, as needed. I informed the patient (or authorized healthcare outside sales representative insurance) that I reviewed their record and presented the opportunity for them to ask any questions regarding the visit today. The patient agreed to participate. Suprapubic abd wall abscess s/p I/D. Abx recs Assessment & Plan (1) Suprapubic abscess: Plan: Recommend switching to vancomycin (2) T12 burst fracture: Plan: No surgical intervention Plan Patient who presented with back pain and was found to have T12 burst fracture and suprapubic abscess which was drained and cultures are growing MRSA and streptococcus agalactiae and she is on zosyn .Recommend discontinuing zosyn and starting vancomycin and on discharge if no DDI can switch to zyvox for 7-10 days .Thank you for allowing us to participate in the care of this patient ID will sign off History of Present Illness History of Present Illness 55 y/o F with no significant past medical history who presented to the ED on 06/04/2025 with complaints of ongoing back pain since March 2025. The patient reports being attacked by a pit bull on March 30, 2025 while she was working and injured her back and the pain has progressively worsened. She was following with orthopedics outpatient and had an MRI without contrast of her thoracic spine that resulted today 06/04/2025 showing a T12 burst fracture with concern for a pathological fracture. A CT abdomen revealed a suprapubic abscess which has been drained and wound cultures are growing MRSA and streptococcus agalactiae on zosyn Allergies Allergy/AdvReac Type Severity Reaction Status Date / Time latex Allergy Itching Verified 06/05/25 10:37 Home Medications Medication Instructions Recorded Confirmed Type ibuprofen 200 mg tablet 600 - 800 mg PO Q6H PRN Pain 06/04/25 06/04/25 History Patient History Social History Smoking Status: Current every day smoker Tobacco Type: Cigarettes Hx Alcohol Use: No Hx Substance Use: No Preferred Language: Lao Communication Ability: Effective Feels Safe at Home: Yes Assistive Devices: None Review of Systems Fatigued with back pain Physical Exam Awake alert oriented no respiratory distress Results & Data Vital Signs (Past 12 Hours) Vital Signs Temp Pulse Resp BP Pulse Ox O2 Del Method 06/07/25 03:41 36.5 C 76 16 103/67 99 Room Air 06/06/25 23:36 36.8 C 76 16 109/68 99 Room Air Laboratory Results Surface Wound Culture Preliminary 06/07/25-1008 Organism 1 Staph aureus MRSA Quantity Many Sens Sensitivities to Follow Organism 2 Strep agalactiae (group B) Quantity Many Sens Sensitivities to Follow MRSA Str ag GpB RX M.I.C. RX M.I.C. --- --------- --- --------- Ampicillin S 0.12 Cefepime S <=0.25 Cefotaxime S <=0.25 Ceftriaxone S <=0.25 Chloramphenicol S 4 Clindamycin S <=0.25 S <=0.06 Daptomycin S 1 Erythromycin R >4 R >0.5 Linezolid S 2 Oxacillin R >2 Penicillin S 0.06 Rifampin S <=1 Tetracycline S <=4 Trimeth/Sulfa S <=0.5/9.5 Vancomycin S 1 S 0.5 S = SENSITIVE I = INTERMEDIATE R = RESISTANT Diagnostic Findings IMPRESSION: 1. Anasarca with trace pelvic ascites. 6.4 cm phlegmon/developing abscess involves the midline lower anterior abdominal wall/mons pubis extending to the cutaneous surface. 2. Distended gallbladder with cholelithiasis. Findings could be correlated with right upper quadrant ultrasound. 3. T12 burst fracture with severe vertebral body height loss, 2 mm retropulsion and mild paravertebral edema. Subacute etiology is favored. This will be further evaluated and discussed on the already ordered MRI of the thoracic spine. 4. Nonspecific wall thickening of the ascending and transverse colon is likely secondary to partial distention. A nonspecific colitis could appear similarly. 5. Equivocal urothelial thickening of the renal collecting systems. Correlate with urinalysis. IMPRESSION: 1. No lumbar spine fractures. 2. Minimal degenerative changes within the lumbar spine. No central canal or neural foraminal stenosis within the lumbar spine. 3. Redemonstration of a severe T12 burst fracture with mild retropulsion, as shown on MRI of June 05, 2025. 4. 1.5 cm nonenhancing T1 and T2 hypointense L1 vertebral body lesion. Although indeterminate, a benign etiology is favored. This. Be assessed with a follow-up MRI in 6 months to ensure stability. FINDINGS: Vertebrae: Comminuted displaced T12 vertebral body compression fracture resulting in 50% vertebral body height loss. Discs/spinal canal/neural foramina: No acute findings. No significant disc disease. No spinal canal stenosis. Spinal cord: Unremarkable. Normal signal. No abnormal enhancement. Soft tissues: Unremarkable. IMPRESSION: Comminuted displaced T12 vertebral body compression fracture resulting in 50% vertebral body height loss
--- NOTE | 2025-06-07 11:03 | Surgery Progress Note ---
Date of Service June 07, 2025 Assessment & Plan (1) Suprapubic abscess: Plan: POD # 1 s/p incision and drainage an debridement of necrotic skin of suprapubic abscess avss leukocytosis resolved moderate cellulitis around wound site plan; continue antibiotics wound nurse consulted due to poorly controlled diabetes and assess for wound vac to help with healing given hgb a 1c >16.9 MN surgery covering weekend continue pain management Admission and Anticipated Discharge Date Admission Date: June 04, 2025 Subjective feeling okay, pain at surgical site minimal controlled with tylenol no fevers or chills eating okay Physical Exam Constitutional: WD/WN, vitals as above cooperative; no acute distress and not ill appearing Gastrointestinal (Abdomen): Inspection/Auscultation: abdomen normal to inspection; abdomen not distended Percussion/Palpation: + abdomen tender (at wound site) and abdomen soft; no guarding and abdomen not rigid Suprapubic wound with packing present. there is small area of necrosis superior and lateral to the open wound. Moderate erythema and induration surrounding. Moderate tenderness to palpation. Skin: no rashes, warm and dry Results & Data Vital Signs (Past 12 Hours) Vital Signs Temp Pulse Resp BP Pulse Ox O2 Del Method 06/07/25 03:41 36.5 C 76 16 103/67 99 Room Air 06/06/25 23:36 36.8 C 76 16 109/68 99 Room Air Laboratory Results 06/07/25 06/07/25 06/07/25 Range/Units 07:39 05:49 03:39 WBC 8.80 (4.8-10.8) K/ul RBC 4.70 (4.20-5.40) M/uL Hgb 14.2 (12.0-16.0) g/dl Hct 42.2 (37.0-47.0) % MCV 89.8 (80.0-100.0) fL MCH 30.2 (25.0-34.0) pg MCHC 33.6 (32.0-36.0) g/dL RDW Std Deviation 40.7 (36.4-46.3) fL RDW Coeff of Tad 12.4 (11.5-14.5) % Plt Count 309 (130-400) K/uL MPV 9.9 (9.4-12.4) fL Sodium 139 (136-145) mmol/L Potassium 3.6 D (3.5-5.1) mmol/L Chloride 109 H (98-107) mmol/L Carbon Dioxide 27 (21-32) mmol/L Anion Gap 3 (3-11) BUN 16 (6-23) mg/dl Creatinine 0.52 L (0.6-1.2) mg/dl Est Cr Clr Drug Dosing 107.5 ml/min eGFR 109.65 BUN/Creatinine Ratio 30.8 H (10-20) Glucose 141 H (70-99(Fasting)) mg/dl POC Glucose 155 H 140 H (70-99) mg/dl Calcium 7.7 L (8.6-10.3) mg/dl Phosphorus 3.2 (2.5-4.9) mg/dl Magnesium 1.7 (1.7-2.4) mg/dl 06/06/25 06/06/25 06/06/25 Range/Units 23:33 20:08 16:53 WBC (4.8-10.8) K/ul RBC (4.20-5.40) M/uL Hgb (12.0-16.0) g/dl Hct (37.0-47.0) % MCV (80.0-100.0) fL MCH (25.0-34.0) pg MCHC (32.0-36.0) g/dL RDW Std Deviation (36.4-46.3) fL RDW Coeff of Tad (11.5-14.5) % Plt Count (130-400) K/uL MPV (9.4-12.4) fL Sodium (136-145) mmol/L Potassium (3.5-5.1) mmol/L Chloride (98-107) mmol/L Carbon Dioxide (21-32) mmol/L Anion Gap (3-11) BUN (6-23) mg/dl Creatinine (0.6-1.2) mg/dl Est Cr Clr Drug Dosing ml/min eGFR BUN/Creatinine Ratio (10-20) Glucose (70-99(Fasting)) mg/dl POC Glucose 131 H 235 H 265 H (70-99) mg/dl Calcium (8.6-10.3) mg/dl Phosphorus (2.5-4.9) mg/dl Magnesium (1.7-2.4) mg/dl 06/06/25 Range/Units 11:37 WBC (4.8-10.8) K/ul RBC (4.20-5.40) M/uL Hgb (12.0-16.0) g/dl Hct (37.0-47.0) % MCV (80.0-100.0) fL MCH (25.0-34.0) pg MCHC (32.0-36.0) g/dL RDW Std Deviation (36.4-46.3) fL RDW Coeff of Tad (11.5-14.5) % Plt Count (130-400) K/uL MPV (9.4-12.4) fL Sodium (136-145) mmol/L Potassium (3.5-5.1) mmol/L Chloride (98-107) mmol/L Carbon Dioxide (21-32) mmol/L Anion Gap (3-11) BUN (6-23) mg/dl Creatinine (0.6-1.2) mg/dl Est Cr Clr Drug Dosing ml/min eGFR BUN/Creatinine Ratio (10-20) Glucose (70-99(Fasting)) mg/dl POC Glucose 133 H (70-99) mg/dl Calcium (8.6-10.3) mg/dl Phosphorus (2.5-4.9) mg/dl Magnesium (1.7-2.4) mg/dl Microbiology 06/05/25 00:10 Gram Stain - Final Abdomen Wound Culture - Preliminary Staph aureus MRSA Strep agalactiae (group B) 06/06/25 11:20 Gram Stain - Final Abdomen Aerobic and Anaerobic Culture - Preliminary Staphylococcus aureus Staphylococcus aureus#2 Strep agalactiae (group B) 06/04/25 21:28 Aerobic Blood Culture - Preliminary Blood No growth in Aerobic bottle after 48 hours. Anaerobic Blood Culture - Preliminary No growth in Anaerobic bottle after 48 hours. 06/04/25 21:28 Aerobic Blood Culture - Preliminary Blood No growth in Aerobic bottle after 48 hours. Anaerobic Blood Culture - Preliminary No growth in Anaerobic bottle after 48 hours.
[2025-06-07] MEDS: VANCOMYCIN HCL 1,250 MG in SODIUM CHLORIDE 0.9% 250 ML IV STA (11:17)
[2025-06-07] MEDS: MoRPHine SULFATE 4 MG/ML 1 ML CARP\\VIAL IV PRN (11:30)
[2025-06-07] MEDS: INSULIN ASPART PER UNIT CHARGE SC SCH (13:49)
[2025-06-07] MEDS: HEPARIN SOD 5,000 UNIT/0.5 ML VIAL SQ SCH (14:08)
--- NOTE | 2025-06-07 14:16 | Pharmacy Report ---
Pharmacy PK ABX Note - Date of Service June 07, 2025 - Assessment and Plan Assessment 55 year old F receiving vancomycin for treatment of suprapubic abscess. Pertinent microbiologic data includes: abdominal cultures growing MRSA and group B strep, both sensitive to vancomycin. POD #1 s/p I&D. ID consulted and recommended discontinuation of Zosyn and vancomycin monotherapy. Renal function appears stable and at baseline Day # 1 of vancomycin therapy. Plan Vancomycin * Loading dose: 1250 mg IV x 1 * Maintenance dose: 750 mg IV every 8 hours * Regimen is predicted to achieve target AUC/PRISCILA of 400-600 mg/L.hr * Random level ordered for: 06/09/25 Pharmacy will continue to follow and will adjust dose/frequency as necessary. Thank you. Pharmacy has transitioned to AUC monitoring for vancomycin. AUC/PRISCILA is the preferred PK/PD target and is associated with decreased risk of nephrotoxicity compared to traditional trough targets.
--- NOTE | 2025-06-07 14:28 | Pharmacy Report ---
Pharmacy Glycemic Short Note 2 - Date of Service June 07, 2025 - Glycemic Short BSG Results (Last 24 hours): 06/06/25 06/06/25 06/06/25 16:53 20:08 23:33 Glucose POC Glucose 265 H 235 H 131 H 06/07/25 06/07/25 06/07/25 03:39 05:49 07:39 Glucose 141 H POC Glucose 140 H 155 H 06/07/25 11:29 Glucose POC Glucose 200 H OUTPATIENT ANTIDIABETIC REGIMEN: * none, on insulin in the past, but has not had insurance for over 3 years * HbA1c greater than 16.9% (06/05/25) ASSESSMENT: 06/07/25: * Blood sugars elevated again yesterday, but reasons for this are noted below * Fasting blood sugar of 155 mg/dL this morning - so likely will continue similar basal insulin and slightly tighten carb ratio * Antibiotics adjusted from Zosyn to vancomycin 06/06: * Cat received 65 units of SQ insulin yesterday (30 were basal) plus IV regular from the insulin drip and 2 IV regular boluses of 5 units. * Hyperglycemia yesterday from early drip transition and suspect from basal deficiency. BSGs trending down overnight after IV boluses and overnight checks. NovoLog significantly tightened past a weight based stress of 2. Will give yesterday's basal dose and allow for additonal if BSGs remain elevated. Suspect once stabilized will need to back off insulin regimen some. * Went to the OR for I&D of abdominal abscess today, received danny claude and crackers uncovered in PACU, may have some hyperglycemia with dinner. 06/05: * Cat is a 55 year old female with a history of type 2 diabetes mellitus. Pharmacy has been consulted to assist with glycemic management while inpatient. * BSGs on admission elevated at 466 found to be in DKA with anion gap of 20, Co2 13, VBG pH 7.24. The decision was made to begin an insulin drip to treat. Anion gap closed this AM, VBG pH improved, but potassium low. Stitching Machine Feeder Or Offbearer ordered insulin drip to be held while potassium repleted. This AM, Dr. Lion discontinued dextrose fluids and requested transition off of the insulin drip and to subcutaneous insulin. * Basal insulin ordered at a weight based stress of 3 with evening dose reductions if BSGs well controlled. NovoLog at a weight based stress of 3. She is receiving Zosyn for treatment of an abdominal abscess. PLAN FOR INPATIENT GLYCEMIC CONTROL: * Basal insulin * Lantus 20 units SC qAM * Lantus 10-15-20 units SC HS * Bolus insulin * NovoLog per scale ACHS or Q6hrs while NPO * Goal Range: Low 110 mg/dL - High 140 mg/dL * Correction Factor: 25 mg/dL/unit * Nutritional / Prandial insulin per carb ratio of 1 unit per 8 grams CHO consumed
[2025-06-07] MEDS: ADVANCED PROBIOTIC 625 MG CAPSULE PO SCH (15:43)
[2025-06-07] MEDS: VANCOMYCIN 750 MG in SODIUM CHLORIDE 0.9% 250 ML IV SCH (18:24)
[2025-06-08 07:02] LABS: Hematocrit (blood only) 38.9 % (37.0-47.0); Hemoglobin 13.5 g/dl (12.0-16.0); Mean Corpuscular Hemoglobin 31.3 pg (25.0-34.0); Mean Corpuscular Volume 90.0 fL (80.0-100.0); Platelet Count 282 K/uL (130-400); RDW Standard Deviation 39.1 fL (36.4-46.3); Red Blood Count 4.32 M/uL (4.20-5.40); White Blood Count 6.73 K/ul (4.8-10.8)
[2025-06-08 07:23] LABS: Anion Gap 5.0 (3-11); Blood Urea Nitrogen 13.0 mg/dl (6-23); Calcium 7.6 mg/dl (8.6-10.3); Carbon Dioxide 24.0 mmol/L (21-32); Chloride 109.0 mmol/L (98-107); Creatinine Clr Calc Pharmacy 199.6 ml/min; Glucose 234.0 mg/dl (70-99(Fasting)); Magnesium 1.5 mg/dl (1.7-2.4); Potassium 3.6 mmol/L (3.5-5.1); Sodium 138.0 mmol/L (136-145)
--- NOTE | 2025-06-08 09:18 | Surgery Progress Note ---
Date of Service June 08, 2025 Assessment & Plan (1) Suprapubic abscess: Plan: POD#2 I&D of supra pubic abscess WBC 6.2. afebrile cultures growing MRSA; on vancomycin wound vac in place holding seal, + pain at site but otherwise stable pain meds as needed as above. vac looks good no acute surgical issues. call us if any questions or problems Admission and Anticipated Discharge Date Admission Date: June 04, 2025 Subjective Patient has some pain at her post surgical site. wound vac in place holding seal. no other complaints Physical Exam Physical Exam: awake/alert, no distress Respiratory: normal respiratory effort Gastrointestinal (Abdomen): supra pubic region with vac in place holding good seal Results & Data Vital Signs (Past 12 Hours) Vital Signs Temp Pulse Resp BP Pulse Ox O2 Del Method 06/08/25 07:17 97.9 F 73 18 126/78 99 Room Air PG Care Time/CCT Total # of Minutes Spent Total Time Spent with Patient: Total time spent is greater than 50% in coordination of care (as documented) at patient's floor/unit and/or counseling patient: Coding Level of Care Code 05645 SUB INP/OBS CARE 12/22MIN Diagnoses Suprapubic abscess L02.219
[2025-06-08] MEDS: LANTUS PER UNIT CHARGE SC SCH (09:21)
[2025-06-08] MEDS: MAGNESIUM SULFATE / D5W 1 GM/100 ML BAG IV SCH (09:22)
--- NOTE | 2025-06-08 14:11 | Hospitalist Progress Note ---
Date of Service June 08, 2025 Assessment & Plan (1) Suprapubic abscess: Plan 55-year-old female with no significant past medical history who presents to the ED on 06/04/2025 with complaints of ongoing back pain since March 2025. The patient reports being attacked by a pit bull on March 30, 2025 while she was working. The pit bull jumped on her and knocked her down. She was following with orthopedics outpatient and had an MRI without contrast of her thoracic spine that resulted on 06/04/2025 showing a T12 burst fracture with concern for a pathological fracture. She was sent in by Dr. Juarez for further imaging. She was noted to have T12 burst fracture, suprapubic abd wall abscess and was in DKA. She is being managed for the following: DKA, type 2: s/p DKA protocol. Resolved Suprapubic abscess: s/p I&D on 06/06/2025 for abscess/pathology pending, gen sx evaled, wound vac in place, f/u w/ wound care on dc. problem wound culture growing MRSA and strep. ID evaluated 06/07, recommends vancomycin and can switch to Zyvox for 7 to 10 days at discharge. Continue with probiotics. Diabetes mellitus type 2 with complications: pt states she was on metformin and insulin in the past, discontinued them due to insurance issues. She had not allergies/side effects to metformin per her. Pt presented w/ DKA. A1c > 16.9. Will likely need metformin and insulin on dc w/ close f/u w/ diabetic clinic. Encouraged medication compliance and lifestyle modification. T12 burst fracture: Per Previous Provider, Dr. Juarez has no plans for any type of intervention on the burst fracture of T12 while diabetes is uncontrolled and patient being treated for infection. c/w pain Mx, PT/OT. get vitamin d level. Abnormal MR L spine: 1.5 cm nonenhancing T1 and T2 hypointense L1 vertebral body lesion. Although indeterminate, a benign etiology is favored. This. Be assessed with a follow-up MRI in 6 months to ensure stability. Electrolyte abnormality: improved, monitor and replete. Full code DVT ppx- hep sq Admission and Anticipated Discharge Date Admission Date: June 04, 2025 Subjective Patient was seen and examined at bedside. Patient was lying in bed, on room air, NAD, resting comfortably. Patient reports some pain at her I&D site, wound VAC in place. Patient denies any acute medical complaints. Patient reports eating okay and moving bowels okay. Physical Exam Physical Exam: Constitutional: Alert, nontoxic HEENT: Mucous membranes moist. Lungs: Clear to auscultation, decreased, no wheezes rales or rhonchi CV: S1-S2, regular Abdomen: Soft, nontender, nondistended, suprapubic wound w/ vac in place. Extremities: No significant edema Neuro: No focal deficits Psych: Cooperative, normal mood Results & Data Results & Data Vital Signs (Past 12 Hours) Vital Signs Temp Pulse Resp BP Pulse Ox O2 Del Method 06/08/25 07:17 36.6 C 73 18 126/78 99 Room Air
[2025-06-09] MEDS ORDERED: INSULIN ASPART PER UNIT CHARGE SC SCH
[2025-06-09] MEDS: INSULIN ASPART PER UNIT CHARGE SC SCH (00:08)
[2025-06-09 05:34] LABS: Hematocrit (blood only) 38.2 % (37.0-47.0); Hemoglobin 13.3 g/dl (12.0-16.0); Mean Corpuscular Hemoglobin 30.8 pg (25.0-34.0); Mean Corpuscular Volume 88.4 fL (80.0-100.0); Platelet Count 310 K/uL (130-400); RDW Standard Deviation 38.6 fL (36.4-46.3); Red Blood Count 4.32 M/uL (4.20-5.40); White Blood Count 6.94 K/ul (4.8-10.8)
[2025-06-09 05:52] LABS: Anion Gap 6.0 (3-11); Blood Urea Nitrogen 12.0 mg/dl (6-23); Calcium 7.8 mg/dl (8.6-10.3); Carbon Dioxide 28.0 mmol/L (21-32); Chloride 105.0 mmol/L (98-107); Creatinine Clr Calc Pharmacy 186.3 ml/min; Glucose 208.0 mg/dl (70-99(Fasting)); Magnesium 1.6 mg/dl (1.7-2.4); Potassium 3.3 mmol/L (3.5-5.1); Sodium 139.0 mmol/L (136-145)
[2025-06-09] MEDS: VANCOMYCIN HCL 1,000 MG in SODIUM CHLORIDE 0.9% 250 ML IV SCH (06:13)
[2025-06-09] MEDS: VANCOMYCIN LEVEL ONE (06:16)
[2025-06-09] MEDS: LANTUS PER UNIT CHARGE SC SCH (08:20)
[2025-06-09] MEDS: POTASSIUM CHLORIDE CRTAB 20 MEQ TABCR PO STA (08:43)
[2025-06-09] MEDS: CHOLECALCIFEROL 125 MCG (5,000 UNITS) TAB PO SCH (08:43)
[2025-06-09] MEDS: MAGNESIUM SULFATE / D5W 1 GM/100 ML BAG IV SCH (08:44)
[2025-06-09] MEDS ORDERED: VANCOMYCIN LEVEL ONE (09:30)
[2025-06-09] MEDS: PSYLLIUM HUSK 4GM PACKET PO SCH (11:15)
--- NOTE | 2025-06-09 11:33 | Hospitalist Progress Note ---
Date of Service June 09, 2025 Assessment & Plan (1) Suprapubic abscess: Plan 55-year-old female with no significant past medical history who presents to the ED on 06/04/2025 with complaints of ongoing back pain since March 2025. The patient reports being attacked by a pit bull on March 30, 2025 while she was working. The pit bull jumped on her and knocked her down. She was following with orthopedics outpatient and had an MRI without contrast of her thoracic spine that resulted on 06/04/2025 showing a T12 burst fracture with concern for a pathological fracture. She was sent in by Dr. Juarez for further imaging. She was noted to have T12 burst fracture, suprapubic abd wall abscess and was in DKA. She is being managed for the following: DKA, type 2: s/p DKA protocol. Resolved Suprapubic abscess: s/p I&D on 06/06/2025 for abscess/pathology pending, gen sx evaled, wound vac in place, f/u w/ wound care on dc. Prelim wound culture growing MRSA and strep. ID evaluated 06/07, recommends vancomycin and can switch to Zyvox for 7 to 10 days at discharge. Continue with probiotics. Diabetes mellitus type 2 with complications: pt states she was on metformin and insulin in the past, discontinued them due to insurance issues. She had not allergies/side effects to metformin per her. Pt presented w/ DKA. A1c > 16.9. Will likely need metformin and insulin on dc w/ close f/u w/ diabetic clinic. Encouraged medication compliance and lifestyle modification. T12 burst fracture: Per Previous Provider, Dr. Juarez has no plans for any type of intervention on the burst fracture of T12 while diabetes is uncontrolled and patient being treated for infection. c/w pain Mx, PT/OT. Vitamin D def: Vit D level of < 7.0 ng/ml, start vit d 125 mcg daily, repeat vit d level in 1-2 months. pt made aware of finding and plan as stated. Abnormal MR L spine: 1.5 cm nonenhancing T1 and T2 hypointense L1 vertebral body lesion. Although indeterminate, a benign etiology is favored. This. Be assessed with a follow-up MRI in 6 months to ensure stability. Electrolyte abnormality: monitor and replete. Mg and KCl repleted today. Full code DVT ppx- hep sq Admission and Anticipated Discharge Date Admission Date: June 04, 2025 Subjective Patient was seen and examined at bedside. Patient was lying in bed, on room air, NAD, resting comfortably. Patient reports minimal pain at her I&D site, wound VAC in place. Patient reports eating okay, reports multiple loose stool, will get c diff and s tart psyllium fiber. if c diff neg, then possible imodium. Physical Exam Physical Exam: Constitutional: Alert, nontoxic HEENT: Mucous membranes moist. Lungs: Clear to auscultation, decreased, no wheezes rales or rhonchi CV: S1-S2, regular Abdomen: Soft, nontender, nondistended, suprapubic wound w/ vac in place. Extremities: No significant edema Neuro: No focal deficits Psych: Cooperative, normal mood Results & Data Results & Data Vital Signs (Past 12 Hours) Vital Signs Temp Pulse Resp BP Pulse Ox O2 Del Method 06/09/25 08:23 36.8 C 78 18 128/72 98 Room Air
[2025-06-09 11:48] LABS: Cdiff Toxin B Gene (2yr or >) Negative Cdiff Gene (Neg)
--- NOTE | 2025-06-09 14:20 | Pharmacy Report ---
Pharmacy PK ABX Note - Date of Service June 09, 2025 - Assessment and Plan Assessment 06/09 * Abdominal cultures growing MRS + grp B strep. * Random level 6.3 mcg/mL suggests AUC/PRISCILA below target, will increase dose * ID recommendation for vancomycin and switch to zyvox when able. 06/07 55 year old F receiving vancomycin for treatment of suprapubic abscess. Pertinent microbiologic data includes: abdominal cultures growing MRSA and group B strep, both sensitive to vancomycin. POD #1 s/p I&D. ID consulted and recommended discontinuation of Zosyn and vancomycin monotherapy. Renal function appears stable and at baseline Day # 1 of vancomycin therapy. Plan Vancomycin * Loading dose: 1250 mg IV x 1 * Maintenance dose: 750 mg IV every 8 hours- Random level 6.3 mcg/mL * Increase dose to: 1250 mg IV every 8 hours * Regimen is predicted to achieve target AUC/PRISCILA of 400-600 mg/L.hr * Random level ordered for 06/10 with AM lab Pharmacy will continue to follow and will adjust dose/frequency as necessary. Thank you. Pharmacy has transitioned to AUC monitoring for vancomycin. AUC/PRISCILA is the preferred PK/PD target and is associated with decreased risk of nephrotoxicity compared to traditional trough targets.
[2025-06-09] MEDS: VANCOMYCIN HCL 1,250 MG in SODIUM CHLORIDE 0.9% 250 ML IV SCH (16:10)
[2025-06-10] MEDS: LANTUS PER UNIT CHARGE SC SCH (09:25)
--- NOTE | 2025-06-10 09:38 | Electrocardiogram Report ---
Test Reason : Blood Pressure : */* mmHG Vent. Rate : 78 BPM Atrial Rate : 78 BPM P-R Int : 136 ms QRS Dur : 84 ms QT Int : 388 ms P-R-T Axes : 51 57 53 degrees QTcB Int : 442 ms Normal sinus rhythm Normal ECG No previous ECGs available Confirmed by Barbie St ([place]) on 06/10/2025 9:38:28 AM Referred By: REFERRED SELF Confirmed By: Barbie St
--- NOTE | 2025-06-10 09:41 | Pharmacy Report ---
Pharmacy PK ABX Note - Date of Service June 10, 2025 - Assessment and Plan Assessment 06/10: * Random vancomycin level this AM 11.2 mcg/ml - current vancomycin regimen associated with therapeutic AUC/PRISCILA so will continue current regimen 06/09 * Abdominal cultures growing MRS + grp B strep. * Random level 6.3 mcg/mL suggests AUC/PRISCILA below target, will increase dose * ID recommendation for vancomycin and switch to zyvox when able. 06/07 55 year old F receiving vancomycin for treatment of suprapubic abscess. Pertinent microbiologic data includes: abdominal cultures growing MRSA and group B strep, both sensitive to vancomycin. POD #1 s/p I&D. ID consulted and recommended discontinuation of Zosyn and vancomycin monotherapy. Renal function appears stable and at baseline Day # 1 of vancomycin therapy. Plan Vancomycin * No change to dosing, continue same Pharmacy will continue to follow and will adjust dose/frequency as necessary. Thank you. Pharmacy has transitioned to AUC monitoring for vancomycin. AUC/PRISCILA is the preferred PK/PD target and is associated with decreased risk of nephrotoxicity compared to traditional trough targets.
--- NOTE | 2025-06-10 15:31 | Hospitalist Progress Note ---
Date of Service June 10, 2025 Assessment & Plan (1) Suprapubic abscess: Plan 55-year-old female with no significant past medical history who presents to the ED on 06/04/2025 with complaints of ongoing back pain since March 2025. The patient reports being attacked by a pit bull on March 30, 2025 while she was working. The pit bull jumped on her and knocked her down. She was following with orthopedics outpatient and had an MRI without contrast of her thoracic spine that resulted on 06/04/2025 showing a T12 burst fracture with concern for a pathological fracture. She was sent in by Dr. Juarez for further imaging. She was noted to have T12 burst fracture, suprapubic abd wall abscess and was in DKA. She is being managed for the following: DKA, type 2: s/p DKA protocol. Resolved Suprapubic abscess: s/p I&D on 06/06/2025 for abscess/pathology pending, gen sx evaled, wound vac in place, f/u w/ wound care on dc. Prelim wound culture growing MRSA and strep. ID evaluated 06/07, recommends vancomycin and can switch to Zyvox for 7 to 10 days at discharge. Continue with probiotics. Diabetes mellitus type 2 with complications: pt states she was on metformin and insulin in the past, discontinued them due to insurance issues. She had not allergies/side effects to metformin per her. Pt presented w/ DKA. A1c > 16.9. Will likely need metformin and insulin on dc w/ close f/u w/ diabetic clinic. Encouraged medication compliance and lifestyle modification. T12 burst fracture: Per Previous Provider, Dr. Juarez has no plans for any type of intervention on the burst fracture of T12 while diabetes is uncontrolled and patient being treated for infection. c/w pain Mx, PT/OT. Vitamin D def: Vit D level of < 7.0 ng/ml, start vit d 125 mcg daily, repeat vit d level in 1-2 months. pt made aware of finding and plan as stated. Abnormal MR L spine: 1.5 cm nonenhancing T1 and T2 hypointense L1 vertebral body lesion. Although indeterminate, a benign etiology is favored. This needs to be assessed with a follow-up MRI in 6 months to ensure stability. Electrolyte abnormality: monitor and replete. Full code DVT ppx- hep sq Admission and Anticipated Discharge Date Admission Date: June 04, 2025 Subjective Patient was seen and examined at bedside. Patient was lying in bed, on room air, NAD, resting comfortably. Patient reports minimal pain at her I&D site, wound VAC in place. Patient reports eating okay, reports stool forming up, c/w psyllium fiber. c diff is neg Physical Exam Physical Exam: Constitutional: Alert, nontoxic HEENT: Mucous membranes moist. Lungs: Clear to auscultation, decreased, no wheezes rales or rhonchi CV: S1-S2, regular Abdomen: Soft, nontender, nondistended, suprapubic wound w/ vac in place. Extremities: No significant edema Neuro: No focal deficits Psych: Cooperative, normal mood Results & Data Results & Data Vital Signs (Past 12 Hours) Vital Signs Temp Pulse Pulse Resp BP Pulse Ox O2 Del Method 06/10/25 11:24 36.9 C 79 18 140/82 99 Room Air 06/10/25 07:52 36.7 C 78 18 132/71 98 Room Air 06/10/25 07:45 37.1 C 68 18 154/71 H 98 Nasal Cannula 06/10/25 07:30 Room Air O2 Flow Rate 06/10/25 11:24 06/10/25 07:52 06/10/25 07:45 2 06/10/25 07:30
[2025-06-11 06:03] LABS: Hematocrit (blood only) 38.4 % (37.0-47.0); Hemoglobin 12.9 g/dl (12.0-16.0); Mean Corpuscular Hemoglobin 30.4 pg (25.0-34.0); Mean Corpuscular Volume 90.6 fL (80.0-100.0); Platelet Count 311 K/uL (130-400); RDW Standard Deviation 40.0 fL (36.4-46.3); Red Blood Count 4.24 M/uL (4.20-5.40); White Blood Count 8.52 K/ul (4.8-10.8)
[2025-06-11] MEDS: ONDANSETRON INJ 2 MG/ML 2 ML VIAL IV PRN (06:05)
[2025-06-11 06:22] LABS: Anion Gap 5.0 (3-11); Blood Urea Nitrogen 19.0 mg/dl (6-23); Calcium 7.8 mg/dl (8.6-10.3); Carbon Dioxide 27.0 mmol/L (21-32); Chloride 105.0 mmol/L (98-107); Creatinine Clr Calc Pharmacy 151.1 ml/min; Glucose 279.0 mg/dl (70-99(Fasting)); Potassium 4.3 mmol/L (3.5-5.1); Sodium 137.0 mmol/L (136-145)
[2025-06-11] MEDS: LANTUS PER UNIT CHARGE SC SCH (08:52)
--- NOTE | 2025-06-11 10:04 | Pharmacy Report ---
Pharmacy Glycemic Short Note 2 - Date of Service June 11, 2025 - Glycemic Short BSG Results (Last 24 hours): 06/10/25 06/10/25 06/10/25 11:54 16:30 20:21 Glucose POC Glucose 136 H 145 H 240 H 06/11/25 06/11/25 05:36 07:35 Glucose 279 H POC Glucose 230 H OUTPATIENT ANTIDIABETIC REGIMEN: * none, on insulin in the past, but has not had insurance for over 3 years * HbA1c greater than 16.9% (06/05/25) ASSESSMENT: 06/11: * Patient received total of 54 units of insulin yesterday * Fasting BSG >200 again this AM, will titrate basal back up to 35 units once daily * No change to CF/CR 06/07/25: * Blood sugars elevated again yesterday, but reasons for this are noted below * Fasting blood sugar of 155 mg/dL this morning - so likely will continue similar basal insulin and slightly tighten carb ratio * Antibiotics adjusted from Zosyn to vancomycin 06/06: * Cat received 65 units of SQ insulin yesterday (30 were basal) plus IV regular from the insulin drip and 2 IV regular boluses of 5 units. * Hyperglycemia yesterday from early drip transition and suspect from basal deficiency. BSGs trending down overnight after IV boluses and overnight checks. NovoLog significantly tightened past a weight based stress of 2. Will give yesterday's basal dose and allow for additonal if BSGs remain elevated. Suspect once stabilized will need to back off insulin regimen some. * Went to the OR for I&D of abdominal abscess today, received danny claude and crackers uncovered in PACU, may have some hyperglycemia with dinner. 06/05: * Cat is a 55 year old female with a history of type 2 diabetes mellitus. Pharmacy has been consulted to assist with glycemic management while inpatient. * BSGs on admission elevated at 466 found to be in DKA with anion gap of 20, Co2 13, VBG pH 7.24. The decision was made to begin an insulin drip to treat. Anion gap closed this AM, VBG pH improved, but potassium low. Front Desk Coordinator ordered insulin drip to be held while potassium repleted. This AM, Dr. Lion discontinued dextrose fluids and requested transition off of the insulin drip and to subcutaneous insulin. * Basal insulin ordered at a weight based stress of 3 with evening dose reductions if BSGs well controlled. NovoLog at a weight based stress of 3. She is receiving Zosyn for treatment of an abdominal abscess. PLAN FOR INPATIENT GLYCEMIC CONTROL: * Basal insulin * Lantus 35 units once daily * Bolus insulin * NovoLog per scale ACHS or Q6hrs while NPO * Goal Range: Low 110 mg/dL - High 140 mg/dL * Correction Factor: 30 mg/dL/unit * Nutritional / Prandial insulin per carb ratio of 1 unit per 10 grams CHO consumed
[2025-06-12] MEDS: VANCOMYCIN LEVEL ONE (06:17)
--- NOTE | 2025-06-12 08:18 | Pharmacy Report ---
Pharmacy PK ABX Note - Date of Service June 12, 2025 - Assessment and Plan Assessment 06/11: Reviewed random vancomycin level, predicting therapeutic AUC/PRISCILA, continue current regimen. 06/10: * Random vancomycin level this AM 11.2 mcg/ml - current vancomycin regimen associated with therapeutic AUC/PRISCILA so will continue current regimen 06/09 * Abdominal cultures growing MRS + grp B strep. * Random level 6.3 mcg/mL suggests AUC/PRISCILA below target, will increase dose * ID recommendation for vancomycin and switch to zyvox when able. 06/07 55 year old F receiving vancomycin for treatment of suprapubic abscess. Pertinent microbiologic data includes: abdominal cultures growing MRSA and group B strep, both sensitive to vancomycin. POD #1 s/p I&D. ID consulted and recommended discontinuation of Zosyn and vancomycin monotherapy. Renal function appears stable and at baseline Day # 1 of vancomycin therapy. Plan Vancomycin * No change to dosing, continue same Pharmacy will continue to follow and will adjust dose/frequency as necessary. Thank you. Pharmacy has transitioned to AUC monitoring for vancomycin. AUC/PRISCILA is the preferred PK/PD target and is associated with decreased risk of nephrotoxicity compared to traditional trough targets.
--- NOTE | 2025-06-12 10:14 | Pharmacy Report ---
Pharmacy Glycemic Short Note 2 - Date of Service June 12, 2025 - Glycemic Short BSG Results (Last 24 hours): 06/11/25 06/11/25 06/11/25 11:27 16:43 16:45 POC Glucose 241 H 327 H* 314 H* 06/11/25 06/12/25 06/12/25 19:49 07:42 07:45 POC Glucose 226 H 367 H* 343 H* OUTPATIENT ANTIDIABETIC REGIMEN: * none, on insulin in the past, but has not had insurance for over 3 years * HbA1c greater than 16.9% (06/05/25) ASSESSMENT: 06/12: * Cat received 70 units of insulin yesterday (35 were basal) * Fasting BSG this AM elevated, RN reported patient "always" snacking, will not overreact and will continue current basal regimen since was increased yesterday. * Slight changes to NovoLog, tightened carbohydrate ratio and increase goal range to prevent overcorrection. 06/11: * Patient received total of 54 units of insulin yesterday * Fasting BSG >200 again this AM, will titrate basal back up to 35 units once daily * No change to CF/CR 06/07/25: * Blood sugars elevated again yesterday, but reasons for this are noted below * Fasting blood sugar of 155 mg/dL this morning - so likely will continue similar basal insulin and slightly tighten carb ratio * Antibiotics adjusted from Zosyn to vancomycin 06/06: * Cat received 65 units of SQ insulin yesterday (30 were basal) plus IV regular from the insulin drip and 2 IV regular boluses of 5 units. * Hyperglycemia yesterday from early drip transition and suspect from basal deficiency. BSGs trending down overnight after IV boluses and overnight checks. NovoLog significantly tightened past a weight based stress of 2. Will give yesterday's basal dose and allow for additional if BSGs remain elevated. Suspect once stabilized will need to back off insulin regimen some. * Went to the OR for I&D of abdominal abscess today, received danny claude and crackers uncovered in PACU, may have some hyperglycemia with dinner. 06/05: * Cat is a 55 year old female with a history of type 2 diabetes mellitus. Pharmacy has been consulted to assist with glycemic management while inpatient. * BSGs on admission elevated at 466 found to be in DKA with anion gap of 20, Co2 13, VBG pH 7.24. The decision was made to begin an insulin drip to treat. Anion gap closed this AM, VBG pH improved, but potassium low. Manager Nursing ordered insulin drip to be held while potassium repleted. This AM, Dr. Lion discontinued dextrose fluids and requested transition off of the insulin drip and to subcutaneous insulin. * Basal insulin ordered at a weight based stress of 3 with evening dose reductions if BSGs well controlled. NovoLog at a weight based stress of 3. She is receiving Zosyn for treatment of an abdominal abscess. PLAN FOR INPATIENT GLYCEMIC CONTROL: * Basal insulin * Lantus 35 units once daily * Bolus insulin * NovoLog per scale ACHS or Q6hrs while NPO * Goal Range: Low 140 mg/dL - High 180 mg/dL * Correction Factor: 30 mg/dL/unit * Nutritional / Prandial insulin per carb ratio of 1 unit per 9 grams CHO consumed
--- NOTE | 2025-06-12 13:41 | Hospitalist Progress Note ---
Date of Service June 12, 2025 Assessment & Plan (1) Suprapubic abscess: Plan 55-year-old female with no significant past medical history who presents to the ED on 06/04/2025 with complaints of ongoing back pain since March 2025. The patient reports being attacked by a pit bull on March 30, 2025 while she was working. The pit bull jumped on her and knocked her down. She was following with orthopedics outpatient and had an MRI without contrast of her thoracic spine that resulted on 06/04/2025 showing a T12 burst fracture with concern for a pathological fracture. She was sent in by Dr. Juarez for further imaging. She was noted to have T12 burst fracture, suprapubic abd wall abscess and was in DKA. She is being managed for the following: DKA, type 2: s/p DKA protocol. Resolved Suprapubic abscess: s/p I&D on 06/06/2025 for abscess/pathology c/w abscess, gen sx evaled, wound vac in place, f/u w/ wound care on dc. Prelim wound culture growing MRSA and strep. ID evaluated 06/07, recommends vancomycin and can switch to Zyvox for 7 to 10 days at discharge. Continue with probiotics. Diabetes mellitus type 2 with complications: pt states she was on metformin and insulin in the past, discontinued them due to insurance issues. She had not allergies/side effects to metformin per her. Pt presented w/ DKA. A1c > 16.9. Will likely need metformin and insulin on dc w/ close f/u w/ diabetic clinic. Encouraged medication compliance and lifestyle modification. T12 burst fracture: Per Previous Provider, Dr. Juarez has no plans for any type of intervention on the burst fracture of T12 while diabetes is uncontrolled and patient being treated for infection. c/w pain Mx, PT/OT. Vitamin D def: Vit D level of < 7.0 ng/ml, c/w vit d 125 mcg daily, repeat vit d level in 1-2 months. Abnormal MR L spine: 1.5 cm nonenhancing T1 and T2 hypointense L1 vertebral body lesion. Although indeterminate, a benign etiology is favored. This needs to be assessed with a follow-up MRI in 6 months to ensure stability. PT was made a braun. Electrolyte abnormality: monitor and replete. Full code DVT ppx- hep sq Admission and Anticipated Discharge Date Admission Date: June 04, 2025 Subjective Patient was seen and examined at bedside. Patient was lying in bed, on room air, NAD, resting comfortably. Patient reports minimal pain at her I&D site, wound VAC in place. Patient reports eating okay, reports formed stool, c/w psyllium fiber. Pt reports back pain getting better. Physical Exam Physical Exam: Constitutional: Alert, nontoxic HEENT: Mucous membranes moist. Lungs: Clear to auscultation, decreased, no wheezes rales or rhonchi CV: S1-S2, regular Abdomen: Soft, nontender, nondistended, suprapubic wound w/ vac in place. Extremities: No significant edema Neuro: No focal deficits Psych: Cooperative, normal mood Results & Data Results & Data Vital Signs (Past 12 Hours) Vital Signs Temp Pulse Resp BP Pulse Ox O2 Del Method 06/12/25 11:43 36.5 C 83 17 108/67 97 Room Air 06/12/25 07:22 36.7 C 76 17 108/68 96 Room Air
[2025-06-13] MEDS: LANTUS PER UNIT CHARGE SC SCH (08:32)
--- NOTE | 2025-06-13 15:49 | Hospitalist Progress Note ---
Date of Service June 13, 2025 Assessment & Plan (1) Suprapubic abscess: Plan 55-year-old female with no significant past medical history who presents to the ED on 06/04/2025 with complaints of ongoing back pain since March 2025. The patient reports being attacked by a pit bull on March 30, 2025 while she was working. The pit bull jumped on her and knocked her down. She was following with orthopedics outpatient and had an MRI without contrast of her thoracic spine that resulted on 06/04/2025 showing a T12 burst fracture with concern for a pathological fracture. She was sent in by Dr. Juarez for further imaging. She was noted to have T12 burst fracture, suprapubic abd wall abscess and was in DKA. She is being managed for the following: DKA, type 2: s/p DKA protocol. Resolved Suprapubic abscess: s/p I&D on 06/06/2025 for abscess/pathology c/w abscess, gen sx evaled, wound vac in place, f/u w/ wound care on dc. Prelim wound culture growing MRSA and strep. ID evaluated 06/07, recommends vancomycin and can switch to Zyvox for 7 to 10 days at discharge. Continue with probiotics. Diabetes mellitus type 2 with complications: pt states she was on metformin and insulin in the past, discontinued them due to insurance issues. She had not allergies/side effects to metformin per her. Pt presented w/ DKA. A1c > 16.9. Will likely need metformin and insulin on dc w/ close f/u w/ diabetic clinic. Encouraged medication compliance and lifestyle modification. T12 burst fracture: Per Previous Provider, Dr. Juarez has no plans for any type of intervention on the burst fracture of T12 while diabetes is uncontrolled and patient being treated for infection. c/w pain Mx, PT/OT. Vitamin D def: Vit D level of < 7.0 ng/ml, c/w vit d 125 mcg daily, repeat vit d level in 1-2 months. Abnormal MR L spine: 1.5 cm nonenhancing T1 and T2 hypointense L1 vertebral body lesion. Although indeterminate, a benign etiology is favored. This needs to be assessed with a follow-up MRI in 6 months to ensure stability. PT was made a braun. Electrolyte abnormality: monitor and replete. Full code DVT ppx- hep sq Admission and Anticipated Discharge Date Admission Date: June 04, 2025 Subjective Patient was seen and examined at bedside. Patient was lying in bed, on room air, NAD, resting comfortably. Patient reports minimal pain at her I&D site, wound VAC in place. Patient reports eating okay, reports formed stool, c/w psyllium fiber. Pt reports back pain getting better. Physical Exam Physical Exam: Constitutional: Alert, nontoxic HEENT: Mucous membranes moist. Lungs: Clear to auscultation, decreased, no wheezes rales or rhonchi CV: S1-S2, regular Abdomen: Soft, nontender, nondistended, suprapubic wound w/ vac in place. Extremities: No significant edema Neuro: No focal deficits Psych: Cooperative, normal mood Results & Data Results & Data Vital Signs (Past 12 Hours) Vital Signs Temp Pulse Pulse Resp BP Pulse Ox O2 Del Method 06/13/25 15:12 36.8 C 85 18 120/74 99 Room Air 06/13/25 07:00 36.7 C 71 16 116/72 98 Room Air
[2025-06-14 07:02] LABS: Creatinine Clr Calc Pharmacy 116.4 ml/min
--- NOTE | 2025-06-14 09:55 | Pharmacy Report ---
Pharmacy PK ABX Note - Date of Service June 14, 2025 - Assessment and Plan Assessment 06/14: Reviewed vancomycin level, predicting therapeutic AUC/PRISCILA, will continue current regimen. D/w Dr. Back, would like to continue with vancomycin for total 10 days. Orders adjusted. Serum creatinine stable, patient afebrile. Pharmacy will continue to follow daily 06/12: Reviewed random vancomycin level, predicting therapeutic AUC/PRISCILA, continue current regimen. 06/10: * Random vancomycin level this AM 11.2 mcg/ml - current vancomycin regimen associated with therapeutic AUC/PRISCILA so will continue current regimen 06/09 * Abdominal cultures growing MRS + grp B strep. * Random level 6.3 mcg/mL suggests AUC/PRISCILA below target, will increase dose * ID recommendation for vancomycin and switch to zyvox when able. 06/07 55 year old F receiving vancomycin for treatment of suprapubic abscess. Per tinent microbiologic data includes: abdominal cultures growing MRSA and group B strep, both sensitive to vancomycin. POD #1 s/p I&D. ID consulted and recommended discontinuation of Zosyn and vancomycin monotherapy. Renal function appears stable and at baseline Day # 1 of vancomycin therapy. Plan Vancomycin * No change to dosing, continue same Pharmacy will continue to follow and will adjust dose/frequency as necessary. Thank you. Pharmacy has transitioned to AUC monitoring for vancomycin. AUC/PRISCILA is the preferred PK/PD target and is associated with decreased risk of nephrotoxicity compared to traditional trough targets.
[2025-06-14] MEDS: HYDROmorphone INJ 0.5 MG/0.5 ML SYR IV PRN (11:20)
--- NOTE | 2025-06-14 13:53 | Pharmacy Report ---
Pharmacy Glycemic Short Note 2 - Date of Service June 14, 2025 - Glycemic Short BSG Results (Last 24 hours): 06/13/25 06/13/25 06/14/25 16:01 20:34 07:55 POC Glucose 136 H 228 H 163 H 06/14/25 11:16 POC Glucose 89 OUTPATIENT ANTIDIABETIC REGIMEN: * none, on insulin in the past, but has not had insurance for over 3 years * HbA1c greater than 16.9% (06/05/25) ASSESSMENT: 06/14: * Cat received 64 units of insulin yesterday (40 were basal) * Fasting BSG this AM much better than previous, basal increased by 10%, but BSG decreased below goal range with lunchtime BSG check, will decrease by 5% and aim for middle ground. * Will loosen carbohydrate ratio at this time due to BSG below goal today at lunch. No clear trends at this time for adjustments. 06/12: * Cat received 70 units of insulin yesterday (35 were basal) * Fasting BSG this AM elevated, RN reported patient "always" snacking, will not overreact and will continue current basal regimen since was increased yesterday. * Slight changes to NovoLog, tightened carbohydrate ratio and increase goal range to prevent overcorrection. 06/11: * Patient received total of 54 units of insulin yesterday * Fasting BSG >200 again this AM, will titrate basal back up to 35 units once daily * No change to CF/CR 06/07/25: * Blood sugars elevated again yesterday, but reasons for this are noted below * Fasting blood sugar of 155 mg/dL this morning - so likely will continue similar basal insulin and slightly tighten carb ratio * Antibiotics adjusted from Zosyn to vancomycin 06/06: * Cat received 65 units of SQ insulin yesterday (30 were basal) plus IV regular from the insulin drip and 2 IV regular boluses of 5 units. * Hyperglycemia yesterday from early drip transition and suspect from basal deficiency. BSGs trending down overnight after IV boluses and overnight checks. NovoLog significantly tightened past a weight based stress of 2. Will give yesterday's basal dose and allow for additional if BSGs remain elevated. Suspect once stabilized will need to back off insulin regimen some. * Went to the OR for I&D of abdominal abscess today, received danny claude and crackers uncovered in PACU, may have some hyperglycemia with dinner. 06/05: * Cat is a 55 year old female with a history of type 2 diabetes mellitus. Pharmacy has been consulted to assist with glycemic management while inpatient. * BSGs on admission elevated at 466 found to be in DKA with anion gap of 20, Co2 13, VBG pH 7.24. The decision was made to begin an insulin drip to treat. Anion gap closed this AM, VBG pH improved, but potassium low. Yard Worker ordered insulin drip to be held while potassium repleted. This AM, Dr. Lion discontinued dextrose fluids and requested transition off of the insulin drip and to subcutaneous insulin. * Basal insulin ordered at a weight based stress of 3 with evening dose reductions if BSGs well controlled. NovoLog at a weight based stress of 3. She is receiving Zosyn for treatment of an abdominal abscess. PLAN FOR INPATIENT GLYCEMIC CONTROL: * Basal insulin * Lantus 38 units once daily * Bolus insulin * NovoLog per scale ACHS or Q6hrs while NPO * Goal Range: Low 140 mg/dL - High 180 mg/dL * Correction Factor: 30 mg/dL/unit * Nutritional / Prandial insulin per carb ratio of 1 unit per 10 grams CHO consumed
--- NOTE | 2025-06-14 16:11 | Hospitalist Progress Note ---
Date of Service June 14, 2025 Assessment & Plan (1) Suprapubic abscess: Plan 55-year-old female with no significant past medical history who presents to the ED on 06/04/2025 with complaints of ongoing back pain since March 2025. The patient reports being attacked by a pit bull on March 30, 2025 while she was working. The pit bull jumped on her and knocked her down. She was following with orthopedics outpatient and had an MRI without contrast of her thoracic spine that resulted on 06/04/2025 showing a T12 burst fracture with concern for a pathological fracture. She was sent in by Dr. Juarez for further imaging. She was noted to have T12 burst fracture, suprapubic abd wall abscess and was in DKA. She is being managed for the following: DKA, type 2: s/p DKA protocol. Resolved Suprapubic abscess: s/p I&D on 06/06/2025 for abscess/pathology c/w abscess, gen sx evaled, wound vac in place, f/u w/ wound care on dc. Prelim wound culture growing MRSA and strep. ID evaluated 06/07, recommends vancomycin and can switch to Zyvox for 7 to 10 days at discharge. Continue with probiotics. plan 10 d atb Rx. Diabetes mellitus type 2 with complications: pt states she was on metformin and insulin in the past, discontinued them due to insurance issues. She had not allergies/side effects to metformin per her. Pt presented w/ DKA. A1c > 16.9. Will likely need metformin and insulin on dc w/ close f/u w/ diabetic clinic. Encouraged medication compliance and lifestyle modification. T12 burst fracture: Per Previous Provider, Dr. Juarez has no plans for any type of intervention on the burst fracture of T12 while diabetes is uncontrolled and patient being treated for infection. Pt has been explained of the findings and plan of care. c/w pain Mx, PT/OT. f/u w/ orthospine in 1-2 weeks of dc. donot bend, lift heavier than 5lbs and twist. orthotics for TSLO brace, while OOB. Vitamin D def: Vit D level of < 7.0 ng/ml, c/w vit d 125 mcg daily, repeat vit d level in 1-2 months. Abnormal MR L spine: 1.5 cm nonenhancing T1 and T2 hypointense L1 vertebral body lesion. Although indeterminate, a benign etiology is favored. This needs to be assessed with a follow-up MRI in 6 months to ensure stability. PT was made aware . Electrolyte abnormality: monitor and replete. Full code DVT ppx- hep sq Admission and Anticipated Discharge Date Admission Date: June 04, 2025 Subjective Patient was seen and examined at bedside. Patient was lying in bed, on room air, NAD, resting comfortably. Patient reports minimal pain at her I&D site, wound VAC in place. Patient reports eating okay, reports formed stool, c/w psyllium fiber. Pt reports back pain getting better. Physical Exam Physical Exam: Constitutional: Alert, nontoxic HEENT: Mucous membranes moist. Lungs: Clear to auscultation, decreased, no wheezes rales or rhonchi CV: S1-S2, regular Abdomen: Soft, nontender, nondistended, suprapubic wound w/ vac in place. Extremities: No significant edema Neuro: No focal deficits Psych: Cooperative, normal mood Results & Data Results & Data Vital Signs (Past 12 Hours) Vital Signs Temp Pulse Pulse Resp BP Pulse Ox O2 Del Method 06/14/25 15:32 36.6 C 80 20 120/71 99 Room Air 06/14/25 12:39 36.7 C 78 15 111/66 98 Room Air 06/14/25 07:10 36.9 C 65 20 111/69 99 Room Air
[2025-06-15] MEDS: LANTUS PER UNIT CHARGE SC SCH (08:44)
--- NOTE | 2025-06-15 13:56 | Hospitalist Progress Note ---
Date of Service June 15, 2025 Assessment & Plan (1) Suprapubic abscess: Plan 55-year-old female with no significant past medical history who presents to the ED on 06/04/2025 with complaints of ongoing back pain since March 2025. The patient reports being attacked by a pit bull on March 30, 2025 while she was working. The pit bull jumped on her and knocked her down. She was following with orthopedics outpatient and had an MRI without contrast of her thoracic spine that resulted on 06/04/2025 showing a T12 burst fracture with concern for a pathological fracture. She was sent in by Dr. Juarez for further imaging. She was noted to have T12 burst fracture, suprapubic abd wall abscess and was in DKA. She is being managed for the following: DKA, type 2: s/p DKA protocol. Resolved Suprapubic abscess: s/p I&D on 06/06/2025 for abscess/pathology c/w abscess, gen sx evaled, wound vac in place, f/u w/ wound care on dc. Prelim wound culture growing MRSA and strep. ID evaluated 06/07, recommends vancomycin and can switch to Zyvox for 7 to 10 days at discharge. Continue with probiotics. plan 10 d atb Rx. Diabetes mellitus type 2 with complications: pt states she was on metformin and insulin in the past, discontinued them due to insurance issues. She had not allergies/side effects to metformin per her. Pt presented w/ DKA. A1c > 16.9. Will likely need metformin and insulin on dc w/ close f/u w/ diabetic clinic. Encouraged medication compliance and lifestyle modification. T12 burst fracture: Per Previous Provider, Dr. Juarez has no plans for any type of intervention on the burst fracture of T12 while diabetes is uncontrolled and patient being treated for infection. Pt has been explained of the findings and plan of care. c/w pain Mx, PT/OT. f/u w/ orthospine in 1-2 weeks of dc. donot bend, lift heavier than 5lbs and twist. orthotics for TSLO brace, while OOB. Vitamin D def: Vit D level of < 7.0 ng/ml, c/w vit d 125 mcg daily, repeat vit d level in 1-2 months. Abnormal MR L spine: 1.5 cm nonenhancing T1 and T2 hypointense L1 vertebral body lesion. Although indeterminate, a benign etiology is favored. This needs to be assessed with a follow-up MRI in 6 months to ensure stability. PT was made aware . Electrolyte abnormality: monitor and replete. Full code DVT ppx- hep sq Admission and Anticipated Discharge Date Admission Date: June 04, 2025 Subjective Patient seen and examined at bedside. She is lying in the bed comfortably; denies any pain or discomfort. She is afebrile and hemodynamic stable. No significant vents overnight Review of Systems Review of Systems: All systems reviewed & are unremarkable except as noted in Subjective Physical Exam Physical Exam: Constitutional: Alert, nontoxic HEENT: Mucous membranes moist. Lungs: Clear to auscultation, decreased, no wheezes rales or rhonchi CV: S1-S2, regular Abdomen: Soft, nontender, nondistended, suprapubic wound w/ vac in place. Extremities: No significant edema Neuro: No focal deficits Psych: Cooperative, normal mood Results & Data Results & Data Vital Signs (Past 12 Hours) Vital Signs Temp Pulse Resp BP Pulse Ox O2 Del Method 06/15/25 06:59 36.8 C 75 16 110/65 97 Room Air
[2025-06-15] MEDS: FAMOTIDINE 20 MG TAB PO SCH (17:32)
[2025-06-15] MEDS: IBUPROFEN 200 MG TAB PO PRN (17:37)
[2025-06-16] MEDS: HYDROmorphone INJ 0.5 MG/0.5 ML SYR IV STA (02:44)
[2025-06-16] MEDS: ZOLPIDEM TARTRATE 5 MG TAB PO STA (02:44)
[2025-06-16 05:45] LABS: Hematocrit (blood only) 37.7 % (37.0-47.0); Hemoglobin 12.1 g/dl (12.0-16.0); Immature Granulocytes # (auto) 0.06 K/uL (0.01-0.20); Immature Granulocytes % (auto) 0.7 %; Mean Corpuscular Hemoglobin 30.5 pg (25.0-34.0); Mean Corpuscular Volume 95.0 fL (80.0-100.0); Platelet Count 290 K/uL (130-400); RDW Standard Deviation 44.4 fL (36.4-46.3); Red Blood Count 3.97 M/uL (4.20-5.40); White Blood Count 8.08 K/ul (4.8-10.8)
[2025-06-16 06:01] LABS: Anion Gap 3.0 (3-11); Blood Urea Nitrogen 25.0 mg/dl (6-23); Calcium 8.0 mg/dl (8.6-10.3); Carbon Dioxide 24.0 mmol/L (21-32); Chloride 108.0 mmol/L (98-107); Creatinine Clr Calc Pharmacy 114.1 ml/min; Glucose 249.0 mg/dl (70-99(Fasting)); Potassium 4.7 mmol/L (3.5-5.1); Sodium 135.0 mmol/L (136-145)
--- NOTE | 2025-06-16 13:11 | Hospitalist Progress Note ---
Date of Service June 16, 2025 Assessment & Plan (1) Suprapubic abscess: Plan 55-year-old female with no significant past medical history who presents to the ED on 06/04/2025 with complaints of ongoing back pain since March 2025. The patient reports being attacked by a pit bull on March 30, 2025 while she was working. The pit bull jumped on her and knocked her down. She was following with orthopedics outpatient and had an MRI without contrast of her thoracic spine that resulted on 06/04/2025 showing a T12 burst fracture with concern for a pathological fracture. She was sent in by Dr. Juarez for further imaging. She was noted to have T12 burst fracture, suprapubic abd wall abscess and was in DKA. She is being managed for the following: DKA, type 2: s/p DKA protocol. Resolved Suprapubic abscess: s/p I&D on 06/06/2025 for abscess/pathology c/w abscess, gen sx evaled, wound vac in place, f/u w/ wound care on dc. Prelim wound culture growing MRSA and strep. ID evaluated 06/07, recommends vancomycin and can switch to Zyvox for 7 to 10 days at discharge. Continue with probiotics. plan 10 d atb Rx. Diabetes mellitus type 2 with complications: pt states she was on metformin and insulin in the past, discontinued them due to insurance issues. She had not allergies/side effects to metformin per her. Pt presented w/ DKA. A1c > 16.9. Will likely need metformin and insulin on dc w/ close f/u w/ diabetic clinic. Encouraged medication compliance and lifestyle modification. T12 burst fracture: Per Previous Provider, Dr. Juarez has no plans for any type of intervention on the burst fracture of T12 while diabetes is uncontrolled and patient being treated for infection. Pt has been explained of the findings and plan of care. c/w pain Mx, PT/OT. f/u w/ orthospine in 1-2 weeks of dc. donot bend, lift heavier than 5lbs and twist. orthotics for TSLO brace, while OOB. Vitamin D def: Vit D level of < 7.0 ng/ml, c/w vit d 125 mcg daily, repeat vit d level in 1-2 months. Abnormal MR L spine: 1.5 cm nonenhancing T1 and T2 hypointense L1 vertebral body lesion. Although indeterminate, a benign etiology is favored. This needs to be assessed with a follow-up MRI in 6 months to ensure stability. PT was made aware . Electrolyte abnormality: monitor and replete. Full code DVT ppx- hep sq Admission and Anticipated Discharge Date Admission Date: June 04, 2025 Subjective Patient seen and examined at bedside. Comfortable; not in distress. Denies fever, chills, chest pain, shortness of breath, abdominal pain or urinary symptoms. No significant overnight events Review of Systems Review of Systems: All systems reviewed & are unremarkable except as noted in Subjective Physical Exam Physical Exam: Constitutional: Alert, nontoxic HEENT: Mucous membranes moist. Lungs: Clear to auscultation, decreased, no wheezes rales or rhonchi CV: S1-S2, regular Abdomen: Soft, nontender, nondistended, suprapubic wound w/ vac in place. Extremities: No significant edema Neuro: No focal deficits Psych: Cooperative, normal mood Results & Data Results & Data Vital Signs (Past 12 Hours) Vital Signs Temp Pulse Resp BP Pulse Ox O2 Del Method 06/16/25 07:31 36.4 C L 78 16 112/69 99 Room Air
[2025-06-17] MEDS: INSULIN ASPART PER UNIT CHARGE SC SCH (00:14)
[2025-06-17] MEDS: ZOLPIDEM TARTRATE 5 MG TAB PO STA (02:56)
--- NOTE | 2025-06-17 12:45 | Hospitalist Progress Note ---
Date of Service June 17, 2025 Assessment & Plan (1) Suprapubic abscess: Plan 55-year-old female with no significant past medical history who presents to the ED on 06/04/2025 with complaints of ongoing back pain since March 2025. The patient reports being attacked by a pit bull on March 30, 2025 while she was working. The pit bull jumped on her and knocked her down. She was following with orthopedics outpatient and had an MRI without contrast of her thoracic spine that resulted on 06/04/2025 showing a T12 burst fracture with concern for a pathological fracture. She was sent in by Dr. Juarez for further imaging. She was noted to have T12 burst fracture, suprapubic abd wall abscess and was in DKA. She is being managed for the following: DKA, type 2: s/p DKA protocol. Resolved Suprapubic abscess: s/p I&D on 06/06/2025 for abscess/pathology c/w abscess, gen sx evaled, wound vac in place, f/u w/ wound care on dc. wound culture growing MRSA and strep. ID evaluated 06/07, recommends vancomycin and can switch to Zyvox for 7 to 10 days at discharge. Continue with probiotics. End date of 06/18/2025. Diabetes mellitus type 2 with complications: pt states she was on metformin and insulin in the past, discontinued them due to insurance issues. She had not allergies/side effects to metformin per her. Pt presented w/ DKA. A1c > 16.9. Will likely need metformin and insulin on dc w/ close f/u w/ diabetic clinic. Encouraged medication compliance and lifestyle modification. T12 burst fracture: Per Previous Provider, Dr. Juarez has no plans for any type of intervention on the burst fracture of T12 while diabetes is uncontrolled and patient being treated for infection. Pt has been explained of the findings and plan of care. c/w pain Mx, PT/OT. f/u w/ orthospine in 1-2 weeks of dc. do not bend, lift heavier than 5lbs and twist. orthotics for TSLO brace, while OOB. Vitamin D def: Vit D level of < 7.0 ng/ml, c/w vit d 125 mcg daily, repeat vit d level in 1-2 months. Abnormal MR L spine: 1.5 cm nonenhancing T1 and T2 hypointense L1 vertebral body lesion. Although indeterminate, a benign etiology is favored. This needs to be assessed with a follow-up MRI in 6 months to ensure stability. PT was made aware. Electrolyte abnormality: monitor and replete. Full code DVT ppx- hep sq Admission and Anticipated Discharge Date Admission Date: June 04, 2025 Subjective Patient seen and examined at bedside. She is being seen by wound care; reports nausea and intermittent diarrhea. Review of Systems Review of Systems: All systems reviewed & are unremarkable except as noted in Subjective Physical Exam Physical Exam: Constitutional: Alert, nontoxic HEENT: Mucous membranes moist. Lungs: Clear to auscultation, decreased, no wheezes rales or rhonchi CV: S1-S2, regular Abdomen: Soft, nontender, nondistended, suprapubic wound w/ vac in place. Extremities: No significant edema Neuro: No focal deficits Psych: Cooperative, normal mood Results & Data Results & Data Vital Signs (Past 12 Hours) Vital Signs Temp Pulse Resp BP Pulse Ox O2 Del Method 06/17/25 08:28 36.6 C 84 16 140/78 99 Room Air
[2025-06-18] MEDS: diphenhydrAMINE Capsule 25 MG CAP PO ONE (01:23)
[2025-06-18] MEDS ORDERED: VANCOMYCIN LEVEL ONE (05:30)
[2025-06-18 06:39] LABS: Creatinine Clr Calc Pharmacy 127.0 ml/min
[2025-06-18] MEDS: LANTUS PER UNIT CHARGE SC SCH (08:45)
--- NOTE | 2025-06-18 09:00 | Pharmacy Report ---
Pharmacy Glycemic Short Note 2 - Date of Service June 18, 2025 - Glycemic Short BSG Results (Last 24 hours): 06/17/25 06/17/25 06/17/25 11:28 16:21 20:52 POC Glucose 154 H 219 H 180 H 06/18/25 07:44 POC Glucose 200 H OUTPATIENT ANTIDIABETIC REGIMEN: * none, on insulin in the past, but has not had insurance for over 3 years * HbA1c greater than 16.9% (06/05/25) ASSESSMENT: 06/18/25: * Blood sugars have been reasonably controlled over past 72 hours w/ occasional hyperglycemia and borderline lows * Do not anticipate any major changes to glycemic regimen today (adjust goal range, slightly tighten carb ratio, and slightly increase basal) * IV vancomycin to complete today 06/14: * Cat received 64 units of insulin yesterday (40 were basal) * Fasting BSG this AM much better than previous, basal increased by 10%, but BSG decreased below goal range with lunchtime BSG check, will decrease by 5% and aim for middle ground. * Will loosen carbohydrate ratio at this time due to BSG below goal today at lunch. No clear trends at this time for adjustments. 06/07/25: * Blood sugars elevated again yesterday, but reasons for this are noted below * Fasting blood sugar of 155 mg/dL this morning - so likely will continue similar basal insulin and slightly tighten carb ratio * Antibiotics adjusted from Zosyn to vancomycin 06/06: * Cat received 65 units of SQ insulin yesterday (30 were basal) plus IV regular from the insulin drip and 2 IV regular boluses of 5 units. * Hyperglycemia yesterday from early drip transition and suspect from basal deficiency. BSGs trending down overnight after IV boluses and overnight checks. NovoLog significantly tightened past a weight based stress of 2. Will give yesterday's basal dose and allow for additional if BSGs remain elevated. Suspect once stabilized will need to back off insulin regimen some. * Went to the OR for I&D of abdominal abscess today, received danny claude and crackers uncovered in PACU, may have some hyperglycemia with dinner. 06/05: * Cat is a 55 year old female with a history of type 2 diabetes mellitus. Pharmacy has been consulted to assist with glycemic management while inpatient. * BSGs on admission elevated at 466 found to be in DKA with anion gap of 20, Co2 13, VBG pH 7.24. The decision was made to begin an insulin drip to treat. Anion gap closed this AM, VBG pH improved, but potassium low. [employer] ordered insulin drip to be held while potassium repleted. This AM, Dr. Lion discontinued dextrose fluids and requested transition off of the insulin drip and to subcutaneous insulin. * Basal insulin ordered at a weight based stress of 3 with evening dose reductions if BSGs well controlled. NovoLog at a weight based stress of 3. She is receiving Zosyn for treatment of an abdominal abscess. PLAN FOR INPATIENT GLYCEMIC CONTROL: * Basal insulin * Lantus 40 units once daily * Bolus insulin * NovoLog per scale ACHS or Q6hrs while NPO * Goal Range: Low 120 mg/dL - High 160 mg/dL * Correction Factor: 30 mg/dL/unit * Nutritional / Prandial insulin per carb ratio of 1 unit per 9 grams CHO consumed
--- NOTE | 2025-06-18 15:16 | Discharge Summary ---
Date of Service June 18, 2025 Admission HPI Per Admitting Provider This is a 55-year-old female with had a fall at work. She sustained a T12 fracture. She had called our office yesterday saying the symptoms have gotten markedly worse she was unable to get out of bed to urinate. In light of her decline we had her come to the emergency room to update imaging to rule out further collapse of the T12 compression fracture. Patient was subsequently admitted. Admission Exam Per Admitting Provider Constitutional: WD/WN, vitals as above Eyes: PERRL, conjunctivae normal, anicteric sclerae ENMT: external ear and nose normal, oropharynx normal Neck: trachea midline, no thyromegaly Respiratory: normal respiratory effort, lungs clear to auscultation Cardiovascular: RRR, no murmur, no edema Gastrointestinal (Abdomen): normal bowel sounds, soft, nontender, no hepatosplenomegaly Musculoskeletal: no cyanosis or clubbing, extremities motor strength 5/5 (Left foot s/p toe amputation, no neurodeficits, 5/5 strength bilateral legs) Skin: no rashes, warm and dry Neurologic: PERRL, EOMI, accommodation nl, no face palsy, no dysarthria Lymphatic: no cervical or axillary lymphadenopathy Principal Diagnosis DKA, type 2 Suprapubic abscess T12 burst fracture Discharge Exam Constitutional: Alert, nontoxic HEENT: Mucous membranes moist. Lungs: Clear to auscultation, decreased, no wheezes rales or rhonchi CV: S1-S2, regular Abdomen: Soft, nontender, nondistended, suprapubic wound w/ vac in place. Extremities: No significant edema Neuro: No focal deficits Psych: Cooperative, normal mood Discharge Data Allergies Allergy/AdvReac Type Severity Reaction Status Date / Time latex Allergy Itching Verified 06/05/25 10:37 Consultations 06/04/25 18:56 ED Decision to Admit Stat 06/04/25 21:32 Consult General Surgery Routine 06/04/25 22:40 Consult Orthopedic Spine Surgery Routine 06/07/25 10:07 Consult Infectious Diseases Routine Procedures Performed Operation Date: 06/06/25 09:20 Actual Procedures p Incision and Drainage Suprapuic Abscess, Debridement of suprapubic ulcer skin and subcutaneous tissue(Not Applicable) - Dane Keen MD Ordered Studies 06/04/25 21:20 CT abd pelvis wo con Urgent 06/05/25 19:19 MR thoracic spine wo/w con Routine 06/06/25 19:19 MR lumbar spine wo/w con Routine Hospital Course (1) Suprapubic abscess: Plan 55-year-old female with no significant past medical history who presents to the ED on 06/04/2025 with complaints of ongoing back pain since March 2025. The patient reports being attacked by a pit bull on March 30, 2025 while she was working. The pit bull jumped on her and knocked her down. She was following with orthopedics outpatient and had an MRI without contrast of her thoracic spine that resulted on 06/04/2025 showing a T12 burst fracture with concern for a pathological fracture. She was sent in by Dr. Juarez for further imaging. She was noted to have T12 burst fracture, suprapubic abd wall abscess and was in DKA. She is being managed for the following: DKA, type 2: s/p DKA protocol. Resolved. Patient's HbA1c was 16.9%; was placed on insulin at the time of the discharge. Patient was given extensive instructions regarding insulin administration and blood glucose checks. Suprapubic abscess: s/p I&D on 06/06/2025 .Was treated with wound VAC during the hospitalization as well as IV antibiotics as per infectious disease recommendation. At the time of the discharge, wound VAC was removed and patient was instructed to follow-up closely with wound clinic as outpatient. T12 burst fracture: Per Previous Provider, Dr. Juarez has no plans for any type of intervention on the burst fracture of T12 while diabetes is uncontrolled and patient being treated for infection. Pt has been explained of the findings and plan of care. c/w pain Mx, PT/OT. f/u w/ orthospine in 1-2 weeks of dc. do not bend, lift heavier than 5lbs and twist. orthotics for TSLO brace, while OOB. Vitamin D def: Vit D level of < 7.0 ng/ml, c/w vit d 125 mcg daily, repeat vit d level in 1-2 months. Abnormal MR L spine: 1.5 cm nonenhancing T1 and T2 hypointense L1 vertebral body lesion. Although indeterminate, a benign etiology is favored. This needs to be assessed with a follow-up MRI in 6 months to ensure stability. PT was made aware and she verbalized understanding. Please note the above document was generated using voice recognition software. It may contain grammatical, syntax or spelling errors. Any formal questions or concerns about the content, text or information contained within the body of this dictation should be directly addressed to the provider for clarification Total Time Total Time Spent Total Time Spent (In Minutes): 45 Total Time Includes: Examination of the Patient, Discharge Planning, Medication Reconciliation, Communication With Other Providers and Other Discharge Plan Discharge Items Patient Disposition: Home - Home Health Services Reason For Visit: T12 BURST FX Discharge Diagnosis: Suprapubic abscess Diabetes mellitus type 2 with complications T12 burst fracture Condition on Discharge: Fair Activity: Resume your previous activity Non-emergency contact: Primary Care Provider Call non-emergency contact if: you have any medication questions and your symptoms worsen Follow-up/Referrals: Dane Keen MD [Physician] - PCP,NO [Primary Care Provider] - Diet: Carb Consistent or DM2 Addtl Attending Provider Instructions: DIABETES RECOMMENDATIONS: 1.) Use Lantus 35U once a day. this is long acting insulin. 2.) Use 7U Humalog Pen (set dose) with all meals. Subtract 2 units for a small meal. Add 2 units for a large meal. Plus sliding scale for blood sugars above 150. 3.) Check blood sugar before each meal/before bed. Aim to maintain blood sugar levels below 200 (eventually/ideally below 150 before meals) to support healing/continued recovery. Likely would benefit from a continuous glucose monitor if affordable. A small sensor is placed on the back of your arm and automatically checks your blood sugar thru the day. No fingersticks. Talk with your primary provider if interested. 4.) Lifestyle changes- regular/balanced meals + protein thru day, mindful of portion sizes of starches/carbs, avoid sugar-sweetened drinks. You are found to have suprapubic abscess which was drained by Dr. Keen from general surgery. Please follow-up with him as soon as possible after discharge. You are found to have "1.5 cm nonenhancing T1 and T2 hypointense L1 vertebral body lesion". You will need an MRI of the thoracic spine with contrast in 3 months to ensure stability. You may need further workup depending on the results. Wound Care instructions: To lower abdomen- Clean wound with normal saline, and pat dry. Apply aquacel ag, and optifoam or bordergauze. Change daily and as needed. Follow up with [facility] [address] [place], Tuesday at 1:00 pm. If you are unable to make it to this appointment or need to reschedule please call Pending Studies at Discharge: No Stand-Alone Forms: My [facility], Smoking Cessation Medications and DC Order Prescriptions: New famotidine 20 mg Tablet 20 mg PO QAM 30 Days Qty: 30 0RF cholecalciferol (vitamin D3) 125 mcg (5,000 unit) Tablet 125 mcg PO QAM Qty: 30 0RF insulin glargine [Lantus Solostar U-100 Insulin] 100 unit/mL (3 mL) insulin pen 35 unit subcut QAM Qty: 15 0RF insulin lispro [Humalog KwikPen Insulin] 100 unit/mL insulin pen 7 unit subcut TID Qty: 15 0RF (DME) pen needle, diabetic 33 gauge x 5/32" needle See Rx Instructions .Route Qty: 100 0RF Rx Instructions: 5x/day (DME) blood-glucose meter [OneTouch Ultra2 Meter] Misc See Rx Instructions .Route Qty: 1 0RF Rx Instructions: As directed (DME) OneTouch Ultra Test Strip See Rx Instructions .Route Qty: 100 0RF Rx Instructions: 4x/day (DME) lancets [Onetouch Delica Safety Lancet] 30 gauge misc See Rx Instructions .Route Qty: 200 0RF Rx Instructions: 4x/day Continued ibuprofen 200 mg Tablet 600 - 800 mg PO Q6H PRN (Reason: Pain) Discharge Orders: Discharge Order (Routine); Ordered 06/18/25 Ordered By: Patricio Salvador Admission Data Admit Date/Time: 06/04/25 18:53 Attending Provider: Patricio Salvador Admit Provider: Kalin Page Primary Care Provider: PCP,NO Other Providers: Kalin Page; Dane Keen; Michael Juarez; Shine Lion; Sarabjit Carrasco; Marilou Thompson; Kaleb Ray I.; Kiet Rizzo II; Ami Flores; Gutierrez Lion; Dane Bearden; Vandana Loera; [facility]
--- NOTE | 2025-06-19 10:02 | Coding Query ---
CODING QUERY To promote full compliance with coding requirements relating to patient care, provider participation is requested in all cases of stone cutter uncertainty. Please assist us with the question(s) below: Coding Question(s): There is documentation on the 06/06 Operative Report of, "This is a 55-year-old female with poorly controlled diabetes who presented with a suprapubic abscess and necrotic ulcer associated. Will plan on doing an I&D and debridement of this necrotic abscess.". Please specify below, in your clinical opinion: ( X ) Suprapubic Abscess, Necrotic Abscess, Necrotic Ulcer is related to/due to the Diabetes ( ) Suprapubic Abscess, Necrotic Abscess, Necrotic Ulcer is NOT related to/due to the Diabetes ( ) Other: Please Specify Physician's Response(s): Thank you Lizzy Mercer Principal Diagnosis: "that condition established after study, to be chiefly responsible for occasioning the admission of the patient to the hospital for care." Co-Existing Principal Diagnosis: "when two or more diagnoses equally meet the criteria for principal diagnosis as determined by the circumstances of admission, diagnostic work up, and/or therapy provided, and the Alphabetic Index, Tabular List, or another coding guideline does not provide sequencing direction, any one of the diagnoses may be sequenced first." "When the physician has documented what appears to be a current diagnosis in the body of the record, but has not included the diagnosis in the final diagnostic statement, the physician should be asked whether the diagnosis should be added." (Source [facility] 2 QTR90. p3-4) AGGIE
--- NOTE | 2025-06-19 10:10 | Coding Query ---
CODING QUERY To promote full compliance with coding requirements relating to patient care, provider participation is requested in all cases of fish liver sorter uncertainty. Please assist us with the question(s) below: Coding Question(s): There is documentation in the record of T12 Burst Fracture, also documented in chart as a compression fracture, and with documentation, as on the ER Report of, "I discussed case with Dr. Huy Chacon who notes that patient has a T12 burst fracture which is felt to be pathologic. He requested MRI with and without contrast and commendation with admission and they will see in the morning and decide a plan for surgery.". Please specify below, in your clinical opinion regarding the T12 Fracture: ( ) T12 Burst Fracture due to Trauma ( ) T12 Compression Fracture. Please specify further below, in your clinical opinion: ( ) Nontraumatic Compression Fracture ( ) Pathological Compression Fracture ( x ) Traumatic Compression Fracture ( ) Other T12 Fracture. Please Specify Physician's Response(s): Thank you Lizzy Mercer Principal Diagnosis: "that condition established after study, to be chiefly responsible for occasioning the admission of the patient to the hospital for care." Co-Existing Principal Diagnosis: "when two or more diagnoses equally meet the criteria for principal diagnosis as determined by the circumstances of admission, diagnostic work up, and/or therapy provided, and the Alphabetic Index, Tabular List, or another coding guideline does not provide sequencing direction, any one of the diagnoses may be sequenced first." "When the physician has documented what appears to be a current diagnosis in the body of the record, but has not included the diagnosis in the final diagnostic statement, the physician should be asked whether the diagnosis should be added." (Source Coding [facility] 2 QTR90. p3-4) AGGIE
--- NOTE | 2025-06-19 10:35 | Coding Query ---
To promote full compliance with coding requirements relating to patient care, provider participation is requested in all cases of beef lugger uncertainty. Please assist us with the question(s) below: Coding Question(s): The diagnosis below was documented in the H&P, then subsequently fell off all further documentation. Please indicate if it is still a possible diagnosis or ruled out. Physician's Response(s): POSSIBLE SEVERE SEPSIS (documented on the H&P) ( X ) Diagnosed and POA. Please specify further below, the most likely cause of Severe Sepsis, in your clinical opinion: ( X ) Cellulitis, Possible Abscess, Suprapubic Abscess ( ) Other: Please Specify ( ) Unknown most likely cause ( ) Ruled out ( ) Other (please specify) MTDD
--- NOTE | 2025-06-20 13:18 | Operative Report ---
Post Operative Report Pre & Post Diagnosis Operation Date: 06/06/25 09:20 Pre-Op Diagnosis: Suprapubic Abscess Post-Op Diagnosis: Suprapubic Abscess I identified the patient and participated in the time-out.: Yes Procedure Operation Date: 06/06/25 09:20 Actual Procedures p Incision and Drainage Suprapuic Abscess, Debridement of suprapubic ulcer skin and subcutaneous tissue(Not Applicable) - Dane Keen MD Surgeon Dane Keen MD Back Closer none Estimated Blood Loss 8 Findings Consistent with Post-Op Diagnosis necrotic abscess Specimens skin; SQ Description of Procedure Addendum to previous OP note 4cm x 2cm skin, SQ debridement; 8 square centimeters I attest to the content of the Intraoperative Record and any orders documented therein. Any exceptions are noted below.
== END 2025-06-18 18:03 | disposition home health service (06) | DRG 463 ==
LOC: ED 17:42 → 3N 18:53 → SUATTDRO 18:53 → 3N 20:38 → 2N 23:26 → 3E 06-05 23:46